=== PATIENT | female | born 1960 | race Caucasian/White ===

== ENCOUNTER 2024-09-30 01:10 | Day surgery (SDC) | payer SELFPAY ==
[2024-09-26 12:09] VITALS: BMI 26.4
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
--- OUTSIDE RECORDS SUMMARY | 2024-09-30 01:12 | XMS_ITS | Clinical Summary ---
Author Organization [facility] Address [address] 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 This disclosure is being madepursuant to the Care Everywhere program and may not contain all information available regarding this patient. Last updated 18.[facility] Medications * Be aware that medications may not be up to date on this document. Alwaysverify current medications with the patient. naproxen (NAPROSYN) 250 MG tablet Take 500 mg by mouth 2 times daily with morning and evening meal. 60 tablet 0 04/27/2017 Active amLODIPine (NORVASC) 5 MG tablet Take 5 mg by mouth DAILY. 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 Gender Identity Not on file Sexual Orientation Not on file Last Filed Vital Signs Vital Sign Reading Time Taken Comments Blood Pressure 170/100 04/27/2017 6:00 PM STRIP MILL OPERATOR Pulse 106 04/27/2017 5:00 PM STRIP MILL OPERATOR Temperature 36.4 C (97.6 F) 04/26/2017 2:35 AM STRIP MILL OPERATOR Respiratory Rate 20 04/27/2017 6:30 PM STRIP MILL OPERATOR Oxygen Saturation 99% 04/27/2017 5:00 PM STRIP MILL OPERATOR Inhaled Oxygen Concentration - - Weight 83 kg (183 lb) 04/26/2017 9:06 AM STRIP MILL OPERATOR Height 165.1 cm (5' 5 ) 04/26/2017 9:06 AM STRIP MILL OPERATOR Body Mass Index 30.45 04/26/2017 9:06 AM STRIP MILL OPERATOR Plan of Treatment Health Maintenance Due Date Last Done Comments COLOGUARD (AGES 45-75) - COL ON CA SCREENING 1960 COLON MONITORING 1960 COLONOSCOPY - COLON CA SCREENING 1960 CT COLONOGRAPHY - COLON CA SCREENING 1960 Colorectal Cancer Screening 1960 FIT - COLON CA SCREENING 1960 FLEX SIG - COLON CA SCREENING 1960 LIPID TESTING 1960 MAMMOGRAM 1960 HIV SCREENING 08/23/1975 HEPATITIS C SCREENING 08/18/1978 DTAP/TDAP/TD VACCINES (1 - Tdap) 08/23/1979 PNEUMOCOCCAL VACCINE 50+ (1 of 1 - PCV) 2010 ZOSTER VACCINE (1 of 2) 2010 COVID-19 VACCINE (1 - 2023-2 5 season) 2024 DEPRESSION SCREENING 05/28/2024 INFLUENZA VACCINE (Season Ended) 2025 Respiratory Syncytial Virus (RSV) Vaccine Pt: or over 60 yrs (1 - 1-dose 75+ series) 08/23/2035 HEPATITIS B VACCINE Aged Out No longe r eligible based on patient's age to complete this topic HIB VACCINE Aged Out No longer eligi ble based on patient's age to complete this topic HPV VACCINE Aged Out No longer eligi ble based on patient's age to complete this topic MENINGOCOCCAL (Group B) VACC INE SHARED DECISION-MAKING Aged Out No longer eligibl e based on patient's age to complete this topic MENINGOCOCCAL GROUPS A/C/Y/W VACCINE Aged Out No longer eligible b ased on patient's age to complete this topic
--- OUTSIDE RECORDS SUMMARY | 2024-09-30 01:13 | XMS_ITS | Data Portability ---
Author Organization [facility] Address [address] [place] [address] Care Team Providers Care Wraparound Facilitator Name Role Phone ZOEY HAINES Primary Care Provider Unavailabl e Assessment No assessment recorded. Plan of Treatment Reminders Order Date Submit Date Provider Last Modified By Organization Details Last Modified Time Details Appointments None recorded. Lab BMP, serum or plasma 2024 025 [facility], [address] [place] [address], [address], [place], [address], 5 10:15:51 albumin/cre atinine, mass ratio, urine 2024 025 [facility], [address] [facility], [address], [place], [address], 5 10:15:50 Referral None recorded. Procedures None recorded. Surgeries None recorded. Imaging None recorded. Medication Orders amlodipine 10 mg tablet 2024 025 [facility], [address] [place], [address], 5 15:44:18 benazepril 20 mg tablet 2024 025 [facility], [address] [place], [address], 5 15:44:19 amlodipine 10 mg tablet 2023 024 [facility], [address] [place], [address], 4 14:45:32 benazepril 20 mg tablet 2023 024 [facility], [address] [place] [address], [address], 4 14:45:32 amlodipine 10 mg tablet 2023 024 [facility], [address] [place] [address], [address], 4 16:01:51 benazepril 20 mg tablet 2023 024 [facility], [address] [place] [address], [address], 4 16:01:50 benazepril 20 mg tablet 2022 023 [facility], [address] [place] [address], [address], 3 14:31:53 amlodipine 10 mg tablet 2022 023 [facility], [address] [place] [address], [address], 3 14:31:51 hydrochloro thiazide 12.5 mg capsule [email or web address], [address] [place] [address], [address], 3 14:31:03 Patient TargetsNo targets recorded. Patient Instructions Encounter Date Encounter Id Patient Instructions Last Modified By Organization Details Last Modified Time 01/23/2023 [id number] agree w plan and treatment and was present Dr. Ambrocio bhakta Not available 01/23/2023 16:49:27 09/04/2023 [id number] agree w plan and treatment and was present Dr. Ambrocio bhakta Not available 09/04/2023 16:42:02 01/10/2024 [id number] I was present an d available in the Family Medicine clinic to discuss the patient's care during the time of the appointment. All labs/imaging/cons ults/prescription s to be followed by the resident rendering services on day of encounter. I agree with the resident's assessment and plan as documented with the following addendum: None. Berto Bhatt [email or web address] Not available 01/11/2024 14:47:32 07/10/2024 [id number] I was present an d available to see this patient in [facility] clinic. I agree with the written findings. Lena Leach MD [email or web address] Not available 07/15/2024 14:33:25 Reason for Referral None Reported. Results Created Date Observation Date Name Description Value Unit Range Abnormal Flag Note LastModifiedBy Organization Detail LastModifiedTime 12/29/1912/28/2022 LIPID PANEL cholesterol, total 223 mg/dL 100-19 9 above high normal Not Available [facility] ([place]) [address] [place], [address], 12/29/2022 01:08:08 12/29/1912/28/2022 LIPID PANEL triglyceride s 81 mg/dL 0-149 Not Available [facility] ([place]) [address] [place], [address], 12/29/2022 01:08:08 12/29/1912/28/2022 LIPID PANEL HDL cholesterol 69 mg/dL 40-999 Not Available [facility] ([place] [address] [place], [address], 12/29/2022 01:08:08 12/29/1912/28/2022 LIPID PANEL VLDL cholesterol althea 16 mg/dL 5-40 Not Available [facility] ([place]) [address] [place], [address], 12/29/2022 01:08:08 12/29/19 23 12/28/2022 LIPID PANEL LDL chol calc ([facility]) 150 mg/dL 0-99 above high normal Not Available [facility] ([place]) [address] [place], [address], 12/29/2022 01:08:08 12/29/19 23 12/28/2022 BASIC METAB OLIC PANEL (8) glucose 87 mg/dL 70-99 Not Available [facility] ([place]) [address] [place], [address], 12/29/2022 01:08:08 12/29/19 23 12/28/2022 BASIC METAB OLIC PANEL (8) BUN 9 mg/dL 8-27 Not Available [facility] ([place]) [address] [place], [address], 12/29/2022 01:08:08 12/29/19 23 12/28/2022 BASIC METAB OLIC PANEL (8) creatinine 0.81 mg/dL 0.76-1 .27 Not Available [facility] ([place]) [address] [place], [address], 12/29/2022 01:08:08 12/29/19 23 12/28/2022 BASIC METAB OLIC PANEL (8) eGFR 82 >=60 Units for eGFR value s are mL/mi n/1.7 3 The eGFR Calcu latio n has not been valid ated for patie nts under the age of 18. If test resul ts are displ ayed for a patie nt under the age of 18, disre corby that value . Not Available [facility] ([place]) [address] [place], [address], 12/29/2022 01:08:08 12/29/19 23 12/28/2022 BASIC METAB OLIC PANEL (8) BUN/creatini ne ratio 11 10-28 Not Available [facility] ([place]) [address] [place], [address], 12/29/2022 01:08:08 12/29/19 23 12/28/2022 BASIC METAB OLIC PANEL (8) sodium 140 mmol/ L 134-14 4 Not Available [facility] ([place]) [address] [place], [address], 12/29/2022 01:08:08 12/29/19 23 12/28/2022 BASIC METAB OLIC PANEL (8) potassium 4.2 mmol/ L 3.5-5. 2 Not Available [facility] ([place]) [address] [place], [address], 12/29/2022 01:08:08 12/29/19 23 12/28/2022 BASIC METAB OLIC PANEL (8) chloride 103 mmol/ L 96-106 Not Available [facility] ([place]) [address] [place], [address], 12/29/2022 01:08:08 12/29/19 23 12/28/2022 BASIC METAB OLIC PANEL (8) carbon dioxide, total 25 mmol/ L 20-29 Not Available [facility] ([place]) [address] [place], [address], 12/29/2022 01:08:08 12/29/19 23 12/28/2022 BASIC METAB OLIC PANEL (8) calcium 9.4 mg/dL 8.7-10 .3 Not Available [facility] ([place]) [address] [place], [address], 12/29/2022 01:08:08 12/29/19 23 12/29/2022 ALBUM IN/CR EATIN INE RATIO ,URIN E creatinine, urine 64.8 mg/dL notest ab. Not Available [facility] ([facility]) [address] [place], [address], 12/29/2022 09:23:00 12/29/19 23 12/29/2022 ALBUM IN/CR EATIN INE RATIO ,URIN E albumin, urine 6.4 ug/mL notest ab. Not Available [facility] ([facility]) [address] [facility], [place], [address], 12/29/2022 09:23:00 12/29/19 23 12/29/2022 ALBUM IN/CR EATIN INE RATIO ,URIN E alb/creat ratio 10 mg/g_ creat 0-29 Emilai l: 0 - 29 Moder ately incre ased: 30 - 300 Sever drea incre ased: >300 Not Available [facility] ([facility]) [address] [facility], [place], [address], 12/29/2022 09:23:00 12/29/19 23 12/29/2022 CARDI OVASC ULAR REPOR T interpretati on Note Suppl ement al repor t is avail able. Not Available [facility] ([place]) [address] [facility], [place], [address], 12/29/2022 01:08:09 12/29/19 23 12/29/2022 CARDI OVASC ULAR REPOR T pdf . Not Available [facility] ([place]) [address] [facility], [place], [address], 12/29/2022 01:08:09 07/10/19 25 07/11/2024 ALBUM IN/CR EATIN INE RATIO ,URIN E creatinine, urine 19.0 mg/dL notest ab. Not Available [facility] ([facility]) [address] [place], [address], 07/11/2024 10:15:50 07/10/19 25 07/11/2024 ALBUM IN/CR EATIN INE RATIO ,URIN E albumin, urine <3.0 ug/mL notest ab. Not Available [facility] ([facility]) [address] [place], [address], 07/11/2024 10:15:50 07/10/19 25 07/11/2024 ALBUM IN/CR EATIN INE RATIO ,URIN E alb/creat ratio <16 Emilia l: 0 - 29 Moder ately incre ased: 30 - 300 Sever drea incre ased: >300 Not Available [facility] ([facility]) [address] [place], [address], 07/11/2024 10:15:50 07/10/19 25 07/11/2024 BASIC METAB OLIC PANEL (8) glucose 98 mg/dL 70-99 Not Available [facility] ([facility]) [address] [place], [address], 07/11/2024 10:15:51 07/10/19 25 07/11/2024 BASIC METAB OLIC PANEL (8) BUN 10 mg/dL 8-27 Not Available [facility] ([facility]) [address] [place], [address], 07/11/2024 10:15:51 07/10/19 25 07/11/2024 BASIC METAB OLIC PANEL (8) creatinine 0.73 mg/dL 0.57-1 .00 Not Available [facility] ([facility]) [address] [place], [address], 07/11/2024 10:15:51 07/10/19 25 07/11/2024 BASIC METAB OLIC PANEL (8) eGFR 92 mL/mi n/1.7 3 >59 Not Available [facility] ([facility]) [address] [place], [address], 07/11/2024 10:15:51 07/10/19 25 07/11/2024 BASIC METAB OLIC PANEL (8) BUN/creatini ne ratio 14 12-28 Not Available [facility] ([facility]) [address] [place], [address], 07/11/2024 10:15:51 07/10/19 25 07/11/2024 BASIC METAB OLIC PANEL (8) sodium 142 mmol/ L 134-14 4 Not Available [facility] ([facility]) [address] [place], [address], 07/11/2024 10:15:51 07/10/19 25 07/11/2024 BASIC METAB OLIC PANEL (8) potassium 4.8 mmol/ L 3.5-5. 2 Not Available [facility] ([facility]) [address] [place], [address], 07/11/2024 10:15:51 07/10/19 25 07/11/2024 BASIC METAB OLIC PANEL (8) chloride 104 mmol/ L 96-106 Not Available [facility] ([facility]) [address] [facility], [place], [address], 07/11/2024 10:15:51 07/10/19 25 07/11/2024 BASIC METAB OLIC PANEL (8) carbon dioxide, total 25 mmol/ L 20-29 Not Available [facility] ([facility]) [address] [facility], [place], [address], 07/11/2024 10:15:51 07/10/19 25 07/11/2024 BASIC METAB OLIC PANEL (8) calcium 9.5 mg/dL 8.7-10 .3 Not Available [facility] ([facility]) [address] [facility], [place], [address], 07/11/2024 10:15:51 Result Notes None recorded. Problems Name Problem SNOMED Code Status Onset Date Resolution Date Notes Provider Name and Address Organization Details Recorded Time Hyperlipidemi a 31875011 Active 2019 Flakito Ramos [facility], [facility] 0 14:24:21 Screening mammography Active 2022 Cecilia Ortega MD Attn: Accounting ,[address] [facility], [place], [address] , [facility] 3 15:02:37 Screening for malignant neoplasm of cervix Active 2022 Cecilia Ortega MD Attn: Accounting ,[address] [facility], [place], [address] , [facility] 3 15:02:39 Essential hypertension 42485669 Active 2024 Chilo Leonard MD Attn: Accounting ,[address] [facility], [place], [address] , [facility] 5 11:50:56 Lacunar infarction 408354660 Active 2018 Chilo Leonard MD Attn: Accounting ,[address], [place], [address] , [facility] 5 15:40:27 Hypertensive disorder 92263857 Active Gianluca Argueta null, [place] - [facility] 5 10:46:38 Problem Notes None recorded. Medical Equipment None Reported. Allergies Allergen ID Allergen Name Allergen Category Reaction Reaction Severity Criticality Documentation Date Start Date Code Code System Note Provider Name and Address Organization Details Recorded Time 10211027 nitroglyc [facility] n Not available Not available Not available 04/30/2017 4917 RxNorm Yadi Ramos [place] null, [place] - [facility] 7 17:06:36 Medications Name Sig Start Date Stop Date Status Note LastModified by Organization Details LastModified Time benazepril hcl/hydrochl orothiazide2 0-25 mg tabs 11/20 completed Not Available Not Available Not Available hydrochlorot tab 25mghydrochl orothiazide active Not Available Not Available Not Available amlodipine tab 10mgamlodipi ne besylate active Not Available Not Available Not Available benazep/hctz tab 20-25mgbenaz epril hcl/hydrochl orothiazide active Not Available Not Available Not Available benazepril 20 mg-hydrochlo rothiazide 25 mg tablet TAKE 1 TABLET BY MOUTH EVERY DAY 11/20 completed Not Available Not Available Not Available naproxen 250 mg tablet 12/11 completed Not Available Not Available Not Available amlodipine 10 mg tablet TAKE 1 TABLET BY MOUTH ONCE DAILY 2024 active Not Available Not Available Not Avai lable hydrochlorot hiazide 12.5 mg capsule TAKE 1 CAPSULE BY MOUTH ONCE DAILY 04/26 completed Not Available Not Available Not Available benazepril 20 mg tablet Take 1 tablet twice a day by oral route for 180 days. 2024 active Not Available Not Available Not Avai lable furosemide 20 mg tablet TAKE 1/2 (ONE-TRENA F) TABLET BY MOUTH ONCE DAILY IN THE MORNING 07/10 completed Not Available Not Available Not Available benazepril 40 mg tablet Take 1 tablet every day by oral route. 12/11 completed Not Available Not Available Not Available Vitals Date Recorded Body height Body mass index (BMI) Body weight Body temperature Heart rate Oxygen saturation Oxygen saturation in Arterial blood by Pulse oximetry Systolic blood pressure Diastolic blood pressure Provider Name and Address Organization Details Last Updated DateTime 3 167.01 cm 25.1 kg/m2 51858.9 2 g 98.5 [degF] 76 /min 98 % 98 % 166 mm[Hg] 110 mm[Hg] Becky Gibson MA [facility] 3 16:08:28 Date Recorded Systolic blood pressure Diastolic blood pressure Provider Name and Address Organization Details Last Updated DateTime 01/23/2023 157 mm[Hg] 103 mm[Hg] Karen Nunez MD Attn: Accounting,[address] [place], [address], [facility] 01/23/2023 17:07:35 Date Recorded Body height Body mass index (BMI) Body weight Oxygen saturation Oxygen saturation in Arterial blood by Pulse oximetry Body temperature Heart rate Systolic blood pressure Diastolic blood pressure Provider Name and Address Organization Details Last Updated DateTime 3 167.01 cm 24.3 kg/m2 58240.9 6 g 98 % 98 % 98.5 [degF] 69 /min 120 mm[Hg] 80 mm[Hg] Brenda Ramsay MA [facility] 3 14:13:18 Date Recorded Body height Body temperature Body mass index (BMI) Body weight Oxygen saturation Oxygen saturation in Arterial blood by Pulse oximetry Heart rate Systolic blood pressure Diastolic blood pressure Provider Name and Address Organization Details Last Updated DateTime 4 167.01 cm 98.1 [degF] 24.4 kg/m2 81089.8 6 g 98 % 98 % 66 /min 138 mm[Hg] 85 mm[Hg] Annette Angeles MA [facility] 4 15:43:55 Date Recorded Body height Body mass index (BMI) Body weight Heart rate Oxygen saturation Oxygen saturation in Arterial blood by Pulse oximetry Body temperature Systolic blood pressure Diastolic blood pressure Provider Name and Address Organization Details Last Updated DateTime 4 167.01 cm 22.1 kg/m2 62543.9 1 g 82 /min 99 % 99 % 98.2 [degF] 135 mm[Hg] 85 mm[Hg] Becky Gibson MA [facility] 4 14:36:19 Date Recorded Body height Body mass index (BMI) Body weight Heart rate Oxygen saturation Oxygen saturation in Arterial blood by Pulse oximetry Body temperature Systolic blood pressure Diastolic blood pressure Provider Name and Address Organization Details Last Updated DateTime 5 167.01 cm 22.7 kg/m2 99162.7 9 g 63 /min 99 % 99 % 98.3 [degF] 144 mm[Hg] 89 mm[Hg] Becky Gibson MA [facility] 5 15:28:24 Date Recorded Systolic blood pressure Diastolic blood pressure Provider Name and Address Organization Details Last Updated DateTime 07/10/2024 132 mm[Hg] 84 mm[Hg] Chilo Leonard MD Attn: Accounting,[address] [place], [address], [facility] 07/10/2024 19:54:38 Social History Question Answer Notes LastModified by Organizat ion Details LastModified Time Tobacco Smoking Status Never Smoker Nirali Frederick jacquelin, [facility] 09/22/2014 17:09:48 What Is Your Level Of Alcohol Consumption? Occasional [email or web address] Information not available 09/22/2014 What Was The Date Of Your Most Recent Tobacco Screening? 07/10/2024 [email or web address] Information not available 07/10/2024 Sex: Unknown Functional Status None recorded. Mental Status None recorded. Family History Nothing Reported. Medical History No medical history recorded. Gynecological HistoryNo gynecological history recorded. Obstetrics History GPAL:G 0 P 0 0 0 0 Past Encounters Encounter ID Performer Location Encounter Start Date Encounter Closed Date Diagnosis/Indication Diagnosis SNOMED-CT Code Diagnosis ICD10 Code Diagnosis Note [id number] MD [facility] ([facility]) [address] [place] [address] 09/22/2014 16:42:07 09/23/2014 09:40:59 Hypertensive disorder 91695896 hypertensi on uncontroll ed Stage II will start on Lisinopril /HCTZ offered her bmp now to see her renal function and she says that she will get it on next bp follow up visit in 3 wks. advised DASH diet and exercise when told to decrease sodium, she says so you are telling me to stay dehydrated to lower my bp advised weight loss advised to be very careful of what herbal meds she uses she states that she had side effects to norvas. [id number] MD [facility] ([facility]) [address] [place] [address] 05/18/2015 11:46:14 05/19/2015 09:45:30 Hypertensive disorder 40588784 I10 -Clinic BP at goal @ 130/84 (goal for age <140/90). -Current medication s: reported only on Benzapril 20-HTCZ 25mg QD -Reported taking medication s w/o any side effects. -Advised to decrease salt intake & to try exercising & diet modificati on -will get BMP to assess for electrolyt e or renal abnormalit ies -Advised to keep BP log for next clinic visit. RTC 3mo [id number] MD [facility] ([facility]) [address] [place] [address] 03/20/2016 13:55:14 03/21/2016 10:07:17 Hypertensive disorder 05654807 I10 Suspect limited compliance with med. Rec NV within 2 weeks, bring home cuff and check against office measure. Decrease ETOH. Also recommend reconsider multiple herbal supps taking; can be vasoactive and have interactio ns/effects not well studied. [id number] MD [facility]) [address] [place] [address] 11/20/2016 16:06:36 11/21/2016 14:06:26 Hypertensive disorder 01771958 I10 BP 140/104, 150/110 on recheck Patient does not want to take amlodipine anymore and does not want a diuretic Will d/c amlodipine and start benazepril 20 mg daily Follow up in 1 month [id number] MD [facility] ([facility]) [address] [place] [address] 12/14/2016 16:22:58 12/15/2016 15:12:38 Hypertensive disorder 29301854 I10 BP 152/104, 120/98 on recheck, goal <140/90 Patient does not want to take amlodipine anymore and does not want a diuretic Discontinu ed amlodipine previously Continue benazepril 20 mg daily Adult [facility] examination [id number] Z00.00 Patient refuses vaccinesPa tient refuses mammogram, Pap, and colonoscop y (never had colonoscop y)Last Pap normal about 3-4 years ago, normal, never had abnormalLa st mammogram 4 years ago, normal, never had abnormal [id number] [facility] [address] [place] [address] 04/30/2017 16:59:55 05/08/2017 17:38:55 Hypertensive disorder 52121373 I10 56 YO F w/ HTN here for hospital follow up. Admitted for hypertensi ve urgency with concern for aneurysm (ruled out and sent home. -BP 144/110 -> recheck 150/100 -Denies any headaches, dizziness, blurry vision, chest pain, palpitatio ns. -On amlodipine 5 mg benazepril 20 mg. -has developed a dry cough. Will take off benazepril . -Will increase amlodipine to 10mg PO daily and start HCTZ 12.5. Adverse effects of medication prescribed is explained to patient. Pt expresses understand ing. All questions addressed. -Recommend checking BP daily and keeping a log. BMI of 47, discussed weight loss and exercise. Pt expresses understand ing. -Follow up in 4wks with PCP. Can switch to ARB if noncomplia nt with HCTZ. [id number] [facility] [address] [place] [address] 06/04/2017 12:05:15 06/07/2017 12:04:06 Hypertensive disorder 10503498 I10 BP 150/102, 146/108 on recheck, goal <140/90 Currently on amlodipine 10 mg daily Urged patient to restart benazepril 20 mg daily She does not want to take diuretics as she feels they dehydrate her too much Patient hesitant to get lab work done, will revisit at next visit in 2 weeks Adult [facility] examination [id number] Z00.00 Patient refuses vaccinesPa tient refuses mammogram, Pap, and colonoscop y (never had colonoscop y)Patient was counseled on the risks of refusing preventati ve health care and chooses to accept risksLast Pap normal about 3-4 years ago, normal, never had abnormalLa st mammogram 4 years ago, normal, never had abnormal [id number] MD Meghan Harris 3 [facility] [address] [place] [address] 09/17/2017 16:33:20 09/18/2017 16:51:44 Hypertensive disorder 20449790 I10 BP 144/98, 130/98 on recheck, goal <140/90 Currently on amlodipine 10 mg daily and benazepril 20 mg daily, will increase benazepril to 40 mg daily, counseled her on reporting to the ER right away if she notices any mouth swelling She does not want to take diuretics as she feels they dehydrate her too much Patient hesitant to get lab work done, revisit at next visit in 1 month Adult [facility] examination [id number] Z00.00 Patient refuses vaccinesPa tient refuses mammogram, Pap, and colonoscop y (never had colonoscop y), discuss FIT testing at next visitPatie nt was counseled on the risks of refusing preventati ve health care and chooses to accept risksLast Pap normal about 3-4 years ago, normal, never had abnormalLa st mammogram 4 years ago, normal, never had abnormal [id number] MD Meghan Sherman 3 [facility] [address] [place] [address] 02/14/2018 16:16:53 02/19/2018 09:50:35 Hypertensive disorder 42075729 I10 above goal, did not take benazepril at all todaydenie s htn emergency symptoms- rechecking bmp- refill meds but change benazepril to 20 mg BID for patient preferred dosing schedule- refuses lipid check/eva tment, refused flu vaccine [id number] MD Meghan Sherman 3 [facility] [address] [place] [address] 09/03/2018 15:59:24 09/05/2018 09:30:39 Hypertensive disorder 99353331 I10 at goal today- patient plans on d/c a home BP med, unclear which at this time- given this, starting hctz not contraindi cated- patient aware of signs/sx hypotensio n and to be seen for these- checking BMP after starting [id number] Arnold Monahan MD [facility] [address] [address] 12/11/2018 11:54:18 12/12/2018 10:22:51 Hypertensive disorder 35859259 I10 endorses goal BPs at home; slightly elevated diastolic today; stable on hypertensi ve medication s- continue benazepril and amlodipine at current dosing; 6 mo supply per patient request and self-pay status- continue BP monitoring at home daily- patient aware of signs/sx hypotensio n and to be seen for these - patient prefers f/u no sooner than 3 months due to self pay Rib pain [id number] R07.8 1 trauma to left lower rib a few weeks ago. no difficulty breathing. most likely musculoske latal vs costochond ritis- educated patient can take 4-6 weeks to fully resolve- ibuprofen or tylenol OTC, which she refused- patient agreeable to expectatio n management [id number] Lena Leach MD [facility] [address] [address] 02/13/2019 14:00:24 02/14/2019 10:28:28 Hypertensive disorder 50142381 I10 endorses goal BPs at home; slightly elevated diastolic today; stable on hypertensi ve medication s- continue benazepril and amlodipine at current dosing; 90 day supply per patient request and self-pay status- continue BP monitoring at home daily- patient aware of signs/sx hypotensio n and to be seen for these - dietary counseling : refrain from cleansings , lower portions of carbohydra carmelina, incorporat e more fruits and vegetables - SMART exercise counseling : schedule walking with 20 min/3-5x per week to get heart rate up to 120-130s; use or other friend for accountabi lity - abnormal lipid panel in 2016; recheck lipid panel prior to next visit; tool to encourage lifestyle changes and consider other lipid reducing medication - follow-up in 6 months [id number] Jeison Campoverde MD [facility] [address] [address] 06/23/2019 17:03:15 06/24/2019 09:34:45 Hypertensive disorder 93154524 I10 Repeat BP at goal <140/90; stable on hypertensi ve medication s. Elevated BPs at home likely due to increased life stressors/ acute illness. Patient is not interested in adding any new medication s, which is reasonable .- continue benazepril and amlodipine at current dosing; 180 day supply per patient request and self-pay status- continue BP monitoring at home daily- patient aware of signs/sx hypotensio n and to be seen for these - dietary counseling : minimize salt additives, incorporat e more fruits and vegetables - SMART exercise counseling : schedule walking with 20 min/3-5x per week to get heart rate up to 120-130s; use or other friend for accountabi lity- counseled on weight loss - with history of stroke, recommende d aspirin and statins. patient refused. - abnormal lipid panel in 2016 and BMP in 2019; recheck lipid panel; patient has been refusing aspirin and statins. tool to encourage lifestyle changes and consider other lipid reducing medication - follow-up in 6 months [id number] [facility] [address] [address] 11/20/2019 12:03:57 11/21/2019 21:45:51 Hypertensive disorder [id number] I10 Repeat BP at goal <140/90; stable on hypertensi ve medication s by home BP monitoring . Unable to assess in office today due to phone visit during COVID-19 pandemic. BMP, UA 11/14 WNL. Stable on BP medication s. ASCVD 4.8%, low risk.- continue benazepril and amlodipine at current dosing; 180 day supply per patient request and self-pay status- continue BP monitoring at home daily- patient aware of signs/sx hypotensio n and to be seen for these - dietary counseling : minimize salt additives, incorporat e more fruits and vegetables - SMART exercise counseling : schedule walking with 20 min/3-5x per week to get heart rate up to 120-130s; use or other friend for accountabi lity- counseled on weight loss - with history of stroke, recommende d aspirin and statins. patient refuses. - follow-up in 6 months Screening mammography [id number] Z12.31 No baseline mammogram on file. Hx of breast cancer in family with sister. Negative BRCA by history. Asymptomat ic. - Counseled on screening mammogram and importance for catching early breast cancer. Patient acknowledg es, but declines. Screening for malignant neoplasm of colon [id number] Z12.11 No baseline colonoscop y or FIT performed. No hx of colon cancer in family. Asymptomat ic. - Counseled on screening colonoscop y and importance for catching early colon cancer. Patient acknowledg es, but declines further screening. Screening for malignant neoplasm of cervix [id number] Z12.4 No recent pap on file. No hx of cervical cancer in family. Asymptomat ic. - Counseled on screening colonoscop y and importance for catching early cervical cancer. Patient acknowledg es, but declines. Hyperlipidemia [id number] E78.5 Chronic, uncontroll ed. TC 212, HDL 58, LDL 128. Also hypertensi ve disorder. ASCVD 4.8%, but with history of stroke.- Discussed diet control. Patient prefers tumeric and other natural remedies to control her cholestero l. - with history of stroke, recommende d statin. patient refuses. [id number] Alanna Mistry MD [facility] [address] [facility] [address] [place] [address] 10/01/2020 12:43:25 10/04/2020 12:15:26 Hypertensive disorder 93562042 I10 Chronic, {{uncontro lled contr olled*}} with {{antihype rtensive medication with lifestyle management * lifestyl e management }}. BP at goal of {{<140/90 <150/90*}} by JNC-8 guidelines . Comorbidit ies include {{obesity obesity and dyslipidem ia dyslipi demia* obe sity, DM and dyslipidem ia DM and dyslipidem ia}}. Unable to assess BP in office, but patient ambulatory monitoring near daily at home in 120s/80s. - Counseled on weight loss; recommende d goal of 10% - Recommende d low sodium balanced diet - Counseled on moderate exercise 4-5 times per week for an average of 40 minutes per session - Counseled on limiting alcohol to {{1* 2}} drinks per day - Counseled on tobacco cessation {{not indicated* done}} - Continue on amlodipine , benazepril - Last BMP stable without significan t changes to Cr or electrolyt e balance. Repeat {{today* 3 months 6 months 12 months}} - Monitor home BP; counseled on logging daily, similar time, after 20 min rest; BP cuff {{ordered on-hand*}} - Follow-up in {{1-2 weeks 3 months 6 months 12 months*}} Screening for malignant neoplasm of cervix declined [id number] Z53.20 Breast can cer screening declined [id number] Z53.20 Colon canc er screening declined [id number] 9109 Z53.20 [id number] Berto Bhatt MD [facility] [address] [facility] [address] [place] [address] 05/30/2021 13:53:17 05/31/2021 13:24:31 Hypertensive disorder 72720274 I10 Chronic, {{uncontro lled contr olled*}} with {{antihype rtensive medication with lifestyle management * lifestyl e management }}. BP at goal of {{<140/90 <150/90*}} by JNC-8 guidelines . Comorbidit ies include {{obesity obesity and dyslipidem ia dyslipi demia* obe sity, DM and dyslipidem ia DM and dyslipidem ia}}. - Counseled on weight loss; recommende d goal of 10% - Recommende d low sodium balanced diet - Counseled on moderate exercise 4-5 times per week for an average of 40 minutes per session - Counseled on limiting alcohol to {{1* 2}} drinks per day - Counseled on tobacco cessation {{not indicated* done}} - Continue on amlodipine , benazepril - Last BMP stable without significan t changes to Cr or electrolyt e balance. Repeat {{today* 3 months 6 months 12 months}} - Monitor home BP; counseled on logging daily, similar time, after 20 min rest; BP cuff {{ordered on-hand*}} - Follow-up in {{1-2 weeks 3 months 6 months 12 months*}} History of cerebrovascular accident [id number] Z86.73 Reported history of lacunar stroke o/a 05/2018. Baseline left-sided arm and leg weakness, well compensate d. Will need hypertensi ve control, ASA and high-inten sity statin therapy for secondary prevention .- Strongly educated and advised ASA and high-inten sity statin therapy; patient declined- ED precaution s for stroke symptoms- HEP with considerat ion for future PT Dyslipidemia [id number] E 78.5 Patient w/ hx of dyslipidem ia, CVA. Lipid panel 2019 with elevated TC/LDLs.- Strongly educated and advised high-inten sity statin therapy; patient declined- Encouraged high-fiber diet, low sugary/sta rch carb diet Swelling o f bilateral lower limbs [id number] M79.89 Not present today on exam and without dyspnea. Likely intermitte nt 2/2 to amlodipine therapy, possible venous insufficie ncy.- Discussed exercise, leg raising, compressio n stockings Weakness of left leg [id number] G83.12 2/2 CVA, residual baseline deficit. Recommende d formal PT. Patient declined and opted for home exercises. Weakness of left arm [id number] G83.22 2/2 CVA, residual baseline deficit. Recommende d formal PT. Patient declined and opted for home exercises. Colon canc er screening declined [id number] 9109 Z53.20 Screening for malignant neoplasm of cervix declined [id number] Z53.20 Breast can cer screening declined [id number] Z53.20 [id number] ROXANNA ACOSTA MD [facility] [address] [facility] [address] [place] [address] 10/31/2021 14:23:55 11/01/2021 10:07:44 Hypertensive disorder 88637535 I10 Chronic, {{uncontro lled contr olled*}} with {{antihype rtensive medication with lifestyle management * lifestyl e management }}. BP at goal of {{<140/90 <150/90*}} by JNC-8 guidelines . Comorbidit ies include {{obesity obesity and dyslipidem ia dyslipi demia* obe sity, DM and dyslipidem ia DM and dyslipidem ia}}. History of lacunar stroke, so important control for secondary prevention . - Counseled on weight loss; recommende d goal of 10% - Recommende d low sodium balanced diet - Counseled on moderate exercise 4-5 times per week for an average of 40 minutes per session - Counseled on limiting alcohol to {{1* 2}} drinks per day - Counseled on tobacco cessation {{not indicated* done}} - Continue on amlodipine , benazepril - Last BMP stable without significan t changes to Cr or electrolyt e balance. Repeat {{today 3 months 6 months* 12 months}} - Discussed not necessary to check BPs daily - Follow-up in {{1-2 weeks 3 months 6 months* 12 months}} [id number] Stacey Castillo-MD Meghan Santana [address] [address] 04/14/2022 14:27:13 04/17/2022 13:06:28 Hypertensive disorder 34883917 I10 BP 140/95 in office today. Patient reports white coat HTN.Home blood pressures in the 120-130s/8 0sReports compliance with Amlodipine 10mg, Benazapril 20mg- Per JNC-8 guidelines , goal BP <140/90- Recommend patient check blood pressures at home and continue current medication s- Check BMP, Urine alb/cr, A1c- Follow up 1-2 months- ER return precaution s provided Hyperlipidemia [id number] E78.01 Jun 2021 lipid panel with TC 214, LDL 132Not currently on a statin- Repeat lipid panel today- Would recommend starting a statin for ASCVD risk prevention with hx of HTN and hyperlipid emia [id number] MD Meghan Pradhan [address] [address] 09/28/2022 14:07:48 09/29/2022 11:02:36 Hypertensive disorder 77298065 I10 BP Goal: {{Less than 140/90* Le ss than 150/90}}BP Controlled : {{yes* no} }Healthy Weight: {{4'10= 91-118 lbs 4'11= 94-123 lbs 5'= 97-127 lbs 5'1= 100-131 lbs 5'2= 104-135 5' 3= 107-140 lbs 5'4= 110-144 lbs 5'5= 115-149 lbs 5'6= 118-154 lbs 5'7= 121-158 lbs* 5'8= 125-163 lbs 5'9= 128-168 lbs 5'10= 132-173 lbs 5'11= 136-178 lbs 6'= 140-183 lbs 6'1= 144-188 lbs 6'2= 148-193 lbs 6'3= 152-199 lbs 6'4= 156-204 lbs}}ASCVD Risk: 5.8% 2021 BMP WNL, urine alb/cr WNL Discussed: Low sodium balanced diet, moderate exercise at least 3-4 times per week for an average of 40 minutes, limiting alcohol to 1 drink per day (F) or 2 drinks per day (M), and smoking cessation if currently smoking.Ne xt Visit: {{1 2 3 4 5 6* 7 8 9 10 11 12} }{{week(s) month(s)* }}- Continue Amlodipine 10mg, Benazapril 20mg- Patient declines labs today d/t self pay Overweight [id number] E66 .3 BMI 27.7- Patient states her goal is to lose 10lbs over the next 3-4 months. She plans to cut back on carbs, similar to a keto diet Mammogram declined [id number] Z53.20 Patient reports last mammogram >5 yrs agoDenies personal/f amily hx of breast cancer- Discussed risks/bene fits of breast cancer screening, patient voiced understand ing. Declines mammogram today Colon [facility] [place] er screening declined [id number] 9109 Z53.20 Patient denies personal/f amily hx of colon cancer. Has never had a colonoscop y.Discusse d risks/bene fits of colon cancer screening, patient voice understand ing. Declines colonoscop y today. Screening for malignant neoplasm of cervix declined [id number] Z53.20 Patient reports last pap >15yrs ago, reports normalPati ent denies personal/f amily hx of cervical cancer, HPV- Discussed risks/bene fits of cervical cancer screening, patient voiced understand ing. Declines testing today [id number] [facility] [address] [facility] [address] [place] [address] 12/28/2022 14:50:04 01/01/2023 11:18:40 Hypertensive disorder 25968346 I10 BP Goal: {{Less than 140/90* Le ss than 150/90}}BP Controlled : {{yes no y es on repeat#}} - home blood pressures in 115-130/65 -85Healthy Weight: {{4'10= 91-118 lbs 4'11= 94-123 lbs 5'= 97-127 lbs 5'1= 100-131 lbs 5'2= 104-135 5' 3= 107-140 lbs 5'4= 110-144 lbs 5'5= 115-149 lbs 5'6= 118-154 lbs 5'7= 121-158 lbs* 5'8= 125-163 lbs 5'9= 128-168 lbs 5'10= 132-173 lbs 5'11= 136-178 lbs 6'= 140-183 lbs 6'1= 144-188 lbs 6'2= 148-193 lbs 6'3= 152-199 lbs 6'4= 156-204 lbs}}ASCVD Risk: 5.8% 2021 BMP WNL, urine alb/cr WNL Discussed: Low sodium balanced diet, moderate exercise at least 3-4 times per week for an average of 40 minutes, limiting alcohol to 1 drink per day (F) or 2 drinks per day (M), and smoking cessation if currently smoking.Ne xt Visit: {{1 2 3 4 5 6* 7 8 9 10 11 12} }{{week(s) month(s)* }}- Continue Amlodipine 10mg, Benazapril 20mg- Recheck BMP, urine alb/cr, lipid panel- Continue checking home blood pressures. Recommend bringing cuff to next visit [id number] [facility] [address] [facility] [address] [place] [address] 01/23/2023 15:20:23 02/01/2023 10:38:58 Hypertensive disorder 33986096 I10 BP Goal: {{Less than 140/90* Le ss than 150/90}}BP Controlled : {{yes no*} }Healthy Weight: {{4'10= 91-118 lbs 4'11= 94-123 lbs 5'= 97-127 lbs 5'1= 100-131 lbs 5'2= 104-135 5' 3= 107-140 lbs 5'4= 110-144 lbs 5'5= 115-149 lbs 5'6= 118-154 lbs 5'7= 121-158 lbs 5'8= 125-163 lbs* 5'9= 128-168 lbs 5'10= 132-173 lbs 5'11= 136-178 lbs 6'= 140-183 lbs 6'1= 144-188 lbs 6'2= 148-193 lbs 6'3= 152-199 lbs 6'4= 156-204 lbs}}Discu ssed: Low sodium balanced diet, moderate exercise at least 3-4 times per week for an average of 40 minutes, limiting alcohol to 1 drink per day and smoking cessation if currently smoking.Ne xt Visit: {{1* 2 3 4 5 6 7 8 9 10 11 12} }{{week(s) month(s)* }}- was previously stable on benazepril 20 bid and amlodipine 10- add HCTZ 12.5 and f/u 1 month [id number] CALLIE BLAKE MD [place] [address] [address] 04/26/2023 13:59:19 04/27/2023 09:27:56 Essential hypertension 41692890 I10 BP Goal: {{Less than 140/90* Le ss than 150/90}}BP Controlled : {{yes* no} }Healthy Weight: {{4'10= 91-118 lbs 4'11= 94-123 lbs 5'= 97-127 lbs 5'1= 100-131 lbs 5'2= 104-135 5' 3= 107-140 lbs 5'4= 110-144 lbs 5'5= 115-149 lbs* 5'6= 118-154 lbs 5'7= 121-158 lbs 5'8= 125-163 lbs 5'9= 128-168 lbs 5'10= 132-173 lbs 5'11= 136-178 lbs 6'= 140-183 lbs 6'1= 144-188 lbs 6'2= 148-193 lbs 6'3= 152-199 lbs 6'4= 156-204 lbs}}Discu ssed: Low sodium balanced diet, moderate exercise at least 3-4 times per week for an average of 40 minutes, limiting alcohol to 1 drink per day (F) or 2 drinks per day (M), and smoking cessation if currently smoking.Ne xt Visit: {{1 2 3* 4 5 6 7 8 9 10 11 12} }{{week(s) month(s)* }}- December BMP and urine alb/cr WNL. Repeat due December 2023- Continue amlodipine 10mg and benazapril 20mg BID- Can discontinu e HCTZ as patient is no longer taking it and BP remains within goal [id number] ROXANNA ACOSTA MD [facility] [address] [address] 09/04/2023 15:28:09 09/05/2023 12:56:43 Essential hypertension 68617393 I10 BP Goal: {{Less than 140/90* Le ss than 150/90}}BP Controlled : {{yes* no} }Healthy Weight: {{4'10= 91-118 lbs 4'11= 94-123 lbs 5'= 97-127 lbs 5'1= 100-131 lbs 5'2= 104-135 5' 3= 107-140 lbs 5'4= 110-144 lbs 5'5= 115-149 lbs* 5'6= 118-154 lbs 5'7= 121-158 lbs 5'8= 125-163 lbs 5'9= 128-168 lbs 5'10= 132-173 lbs 5'11= 136-178 lbs 6'= 140-183 lbs 6'1= 144-188 lbs 6'2= 148-193 lbs 6'3= 152-199 lbs 6'4= 156-204 lbs}}Discu ssed: Low sodium balanced diet, moderate exercise at least 3-4 times per week for an average of 40 minutes, limiting alcohol to 1 drink per day (F) or 2 drinks per day (M), and smoking cessation if currently smoking.Ne xt Visit: {{1 2 3 4 5 6* 7 8 9 10 11 12} }{{week(s) month(s)* }}- December BMP and urine alb/cr WNL. Repeat due December 2023- Continue amlodipine 10mg and benazapril 20mg BID Mammogram declined [id number] Z53.20 Patient reports last mammogram >5 yrs agoDenies personal/f amily hx of breast cancer- Discussed risks/bene fits of breast cancer screening, patient voiced understand ing. Declines mammogram today Screening for malignant neoplasm of colon [id number] Z12.11 Patient denies personal/f amily hx of colon cancer. Has never had a colonoscop y.Discusse d risks/bene fits/alter natives. Patient voice understand ing. Declines colonoscop y, fit/cologu jeffrey today. Cervical c ancer Papanicolaou smear screening declined [id number] 57481 Z53.20 Patient reports last pap >15yrs ago, reports normalPati ent denies personal/f amily hx of cervical cancer, HPV- Discussed risks/bene fits of cervical cancer screening, patient voiced understand ing. Declines testing today [id number] CALLIE BLAKE MD [facility] [address] [address] 01/10/2024 14:25:17 01/11/2024 19:05:45 Essential hypertension 79929139 I10 BP Goal: {{Less than 140/90* Le ss than 150/90}}BP Controlled : {{yes* no} }Healthy Weight: {{4'10= 91-118 lbs 4'11= 94-123 lbs 5'= 97-127 lbs 5'1= 100-131 lbs 5'2= 104-135 5' 3= 107-140 lbs 5'4= 110-144 lbs 5'5= 115-149 lbs* 5'6= 118-154 lbs 5'7= 121-158 lbs 5'8= 125-163 lbs 5'9= 128-168 lbs 5'10= 132-173 lbs 5'11= 136-178 lbs 6'= 140-183 lbs 6'1= 144-188 lbs 6'2= 148-193 lbs 6'3= 152-199 lbs 6'4= 156-204 lbs}}Discu ssed: Low sodium balanced diet, moderate exercise at least 3-4 times per week for an average of 40 minutes, limiting alcohol to 1 drink per day (F) or 2 drinks per day (M), and smoking cessation if currently smoking.Ne xt Visit: {{1 2 3 4 5 6* 7 8 9 10 11 12} }{{week(s) month(s)* }}- December BMP and urine alb/cr WNL. Repeat due at next visit- Continue amlodipine 10mg and benazapril 20mg BID Mammogram declined [id number] 5004 Z53.20 Patient reports last mammogram >5 yrs agoDenies personal/f amily hx of breast cancer- Discussed risks/bene fits of breast cancer screening, patient voiced understand ing. Declines mammogram today Screening for malignant neoplasm of colon [id number] Z12.11 Patient denies personal/f amily hx of colon cancer. Has never had a colonoscop y.Discusse d risks/bene fits/alter natives. Patient voice understand ing. Declines colonoscop y, fit/cologu jeffrey today. Cervical c ancer Papanicolaou smear screening declined [id number] 18247 Z53.20 Patient reports last pap >15yrs ago, reports normalPati ent denies personal/f amily hx of cervical cancer, HPV- Discussed risks/bene fits of cervical cancer screening, patient voiced understand ing. Declines testing today [id number] Stacey hu MD [facility] [address] [address] 07/10/2024 14:59:18 07/17/2024 11:15:49 Depression screening 107538105 Z13.31 PHQ 9 score 0negative for depression Essential hypertension 55017932 I10 BP Goal: {{Less than 140/90* Le ss than 150/90}}BP Controlled : {{yes* no} }Healthy Weight: {{4'10= 91-118 lbs 4'11= 94-123 lbs 5'= 97-127 lbs 5'1= 100-131 lbs 5'2= 104-135 5' 3= 107-140 lbs 5'4= 110-144 lbs 5'5= 115-149 lbs* 5'6= 118-154 lbs 5'7= 121-158 lbs 5'8= 125-163 lbs 5'9= 128-168 lbs 5'10= 132-173 lbs 5'11= 136-178 lbs 6'= 140-183 lbs 6'1= 144-188 lbs 6'2= 148-193 lbs 6'3= 152-199 lbs 6'4= 156-204 lbs}}Discu ssed: Low sodium balanced diet, moderate exercise at least 3-4 times per week for an average of 40 minutes, limiting alcohol to 1 drink per day (F) or 2 drinks per day (M), and smoking cessation if currently smoking.Ne xt Visit: {{1 2 3 4 5 6* 7 8 9 10 11 12} }{{week(s) month(s)* }}- Will obtain BMP, UACR labs today- Continue amlodipine 10mg and benazapril 20mg BID Mammogram declined 78457 500 Z53.20 Patient reports she is self pay - uninsured. [facility] resources with [facility] for coverage of mammogram. Pt reports she only has a year to wait and would rather do that Patient reports last mammogram >5 yrs agoDenies personal/f amily hx of breast cancer- Discussed risks/bene fits of breast cancer screening, patient voiced understand ing. Declines mammogram today Screening for malignant neoplasm of colon [id number] Z12.11 Patient reports she is self pay - uninsuredP atient denies personal/f amily hx of colon cancer. Has never had a colonoscop y.Discusse d risks/bene fits/alter natives. Patient voice understand ing. Declines colonoscop y, fit/cologu jeffrey today. Cervical c ancer Papanicolaou smear screening declined [id number] 80295 Z53.20 Patient reports she is self pay - uninsured Patient reports last pap >15yrs ago, reports normalPati ent denies personal/f amily hx of cervical cancer, HPV- Discussed risks/bene fits of cervical cancer screening, patient voiced understand ing. Declines testing today Pneumococc al vaccination declined [id number] Z28.21 Health Concerns Section Related Observation LastModified by Organization Detai ls LastModified Time None Recorded Concern Status LastModified by Organization Details LastModified Time None Recorded Advance Directives Directive None Recorded Payers Encounter Date Sequence Insurance Name Policy Number Policy Carlin Covered Member ID Carlin Member ID Guarantor Name 04/26/2023 1 *SELF PAY* Harvinder Antoine 09/04/2023 1 *SELF PAY* Harvinder lock Perharvinderk 01/10/2024 1 *SELF PAY* Harvinder lock Perharvinderk 07/10/2024 1 *SELF PAY* Harvinder Moodyk Notes Date Note Type Note Provider Name and Address Organization Details Recorded Time 3 text/html Pt presents for HTN f/u. States she is under significant stress given the loss of her mother and other psychosocial factors which she declined to elaborate on. Denies SI/HI with grief. Otherwise has no acute complaints. Pt denies CP/SOB, F/C, GARZA/dizziness, n/v/d/c, abdominal pain, dysuria, leg pain or swelling. Ivan Albrecht MD Attn: [address] [place], [address], [facility] 01/30/2023 16:46:11 3 text/html Heidy Antoine is a 62-year-old woman coming to the clinic for a blood pressure follow-up. The patient says she takes her benazepril 20 mg twice daily and amlodipine 10 mg once daily consistently and states she does not miss any doses. The patient says she stopped taking the hydrochlorothiazide and has not had any problems since stopping. The patient says she takes her bp measurements at home regularly and has not had any concerning readings. Home blood pressure readings in the 120/80s Denies fever, chest pain, sob. Ivan Albrecht MD Attn: [address] [place], [address], [facility] 04/26/2023 18:05:15 4 text/html 63yr old female presenting for med refills. No acute concernsReports compliance with BP medsChecks BP at home and brought log to visit. Readings are alll within goal.Declines all preventative screening today. Ivan Albrecht MD Attn: [address] [facility], [place], [address], [facility] 09/04/2023 20:34:43 4 text/html 63yr old female presenting for med refills. No acute concernsReports compliance with BP medsChecks BP at home and brought log to visit. Readings are all within goal.Declines all preventative screening today. Berto Bhatt MD Attn: [address] [facility], [place], [address], [facility] 01/11/2024 14:47:36 5 text/html Pt presents for blood pressure follow up.Has been monitoring blood pressure at home.Systolic range 135-116; diastolic range 74-86Pt denies CP/SOB, F/C, GARZA/dizziness, n/v/d/c, abdominal pain, dysuria, leg pain or swelling. Lena Leach MD Attn: [address] [facility], [place], [address], [facility] 07/15/2024 14:33:29 OBGyn Episode No OBEpisode recorded.
[2024-09-30 10:21] VITALS: BP 130/94; PULSE 99; RESP 16; TEMP 36.4; O2SAT 99
[2024-09-30] MEDS: LACTATED RINGERS 1,000 ML 150 ML IV CONT (10:31)
--- NOTE | 2024-09-30 11:01 | P.PNAN_ITS ---
Anes - Initial Pre Proc Eval Procedure: Operation Date: 09/30/24 11:30 Proposed Procedures p Colonoscopy - Myke Olvera MD Date/Time: 09/30/24 11:01 Surgeon: Myke Olvera MD Pre Op Diagnosis: Other fecal abnormalities Patient Data Age: 64 Gender: F Height: 1.55 m Weight: 61.3 kg Last Vital Signs Temp 97.6 F 09/30/24 10:21 Pulse 99 09/30/24 10:21 Resp 16 09/30/24 10:21 BP 130/94 H 09/30/24 10:21 Pulse Ox 99 09/30/24 10:21 O2 Del Method Room Air 09/30/24 10:21 Allergies Allergy/AdvReac Type Severity Reaction Status Date / Time nitroglycerin Allergy Unknown ALMOST Verified 09/30/24 10:20 PASSED OUT Home Medications ?Medication ?Instructions ?Recorded ?Confirmed ?Type amlodipine 10 mg tablet mg 09/26/24 History benazepril 20 mg tablet mg 09/26/24 History furosemide 20 mg tablet mg 09/26/24 History Patient hx anesthesia problems: none Family hx anesthesia problems: none Results Review: All pre-operative results and documents have been reviewed as part of the pre- operative evaluation. [facility] Social History Social History Smoking status: Never smoker Alcohol intake: never Substance use: never Substance use type: does not use Living arrangements: with family Spiritual care concerns: No Anes - Eval Final PreProcedure Day of Procedure 09/30/24 11:01 Patient weight: normal Heart: regular rate and rhythm Lungs: clear to auscultation Airway: Mallampati scale class II Neurological: alert and oriented Last oral intake: >/= 8 hours ASA classification: III Emergent: no Anesthetic plan: proceed Anesthesia type and monitoring: general GIVS and standard monitoring Results Review: All pre-operative results and documents have been reviewed as part of the pre- operative evaluation. Informed Consent: The patient's anesthetic plan and its attendant risks and benefits were discussed with the patient/family/POA. Questions were solicited and answers provided to the satisfaction of the patient/family/POA.
--- NOTE | 2024-09-30 11:18 | PM.HPGS ---
History of Present Illness History of Present Illness Consent: Risks, benefits, and alternatives have been discussed and questions answered. Patient agrees to proceed with procedure. Chief complaint: Other fecal abnormalities Narrative: Heidy Antoine is a 64 year old female here for first colonoscopy, had blood in stool Review of Systems Review of Systems: All systems reviewed & are unremarkable except as noted in HPI and below PMFSH Past Medical History Medical History (Updated 09/30/24 @ 11:19 by Myke Olvera MD) Blood in stool Social History Social History Smoking status: Never smoker Alcohol intake: never Substance use: never Substance use type: does not use Living arrangements: with family Spiritual care concerns: No Meds Home Medications and Allergies Home Medications ?Medication ?Instructions ?Recorded ?Confirmed ?Type amlodipine 10 mg tablet mg 09/26/24 History benazepril 20 mg tablet mg 09/26/24 History furosemide 20 mg tablet mg 09/26/24 History Allergies Allergy/AdvReac Type Severity Reaction Status Date / Time nitroglycerin Allergy Unknown ALMOST Verified 09/30/24 10:20 PASSED OUT Vital Signs Vital Signs - 24 hr 09/30/24 10:21 Temperature 97.6 F Pulse Rate 99 Respiratory Rate 16 Blood Pressure 130/94 H Pulse Oximetry 99 Oxygen Delivery Room Air Exam Const: General: comfortable and no acute distress HENMT: Face/Nose/Sinus: Normal nares present Eyes: General: appearance normal, both eyes and all related structures Neck: Neck: no JVD Resp: Auscultation: clear to auscultation bilaterally Cardio: Rate: regular rate Rhythm: regular rhythm GI: Inspection: non-distended GI Palp: Yes Soft to palpation Skin: General skin exam: normal color Neuro: Speech: normal speech Extrem: General: normal to inspection Psych: Mental Status: mental status grossly normal Assessment and Plan Assessment and plan (1) Blood in stool: Code(s): K92.1 - Melena Status: Acute Assessment and Plan: colonoscopy
[2024-09-30 11:44] VITALS: BP 89/56; PULSE 97; RESP 23; O2SAT 100
[2024-09-30 11:54] VITALS: BP 119/80; PULSE 77; RESP 17; O2SAT 98
[2024-09-30 12:04] VITALS: BP 143/86; PULSE 76; RESP 18; O2SAT 100
== END 2024-09-30 13:05 | disposition home or self-care (01) ==
PROVIDERS: Referring Provider Family Medicine; Visit Provider Internal Medicine Gastroenterology
PROC: 0DJD8ZZ Inspection of Lower Intestinal Tract, Via Natural or Artificial Opening Endoscopic (ICD-10-PCS; CPT 45378; principal; 2024-09-30 11:30)
DX: K92.1 Melena (principal); K57.30 Diverticulosis of large intestine without perforation or abscess without bleeding; D12.5 Benign neoplasm of sigmoid colon; K64.8 Other hemorrhoids
CPT/HCPCS: 45385; 45381; 88305; J2003; J2704; J7120

== ENCOUNTER 2024-11-11 22:59 | Emergency (ER) | payer OTHER, SELFPAY ==
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
--- OUTSIDE RECORDS SUMMARY | 2024-11-11 23:01 | XMS_ITS | Data Portability ---
[facility] Organization [facility] [address] [place] [address] Care Team Providers Care Grand Scribe Name Role Phone ZOEY HAINES Primary Care Provider Unavailabl e Assessment No assessment recorded. Plan of Treatment Reminders Order Date Submit Date Provider Last Modified By Organization Details Last Modified Time Details Appointments None recorded. Lab BMP, serum or plasma 2024 025 [facility], [address] [place] [address], [address], [place], [address], 5 10:15:51 albumin/cre atinine, mass ratio, urine 2024 025 [facility], [address] [facility], [address], [place], [address], 5 10:15:50 Referral None recorded. Procedures None recorded. Surgeries None recorded. Imaging None recorded. Medication Orders amlodipine 10 mg tablet 2024 025 [facility], [address] [place], [address], 5 15:44:18 benazepril 20 mg tablet 2024 025 [facility], [address] [place], [address], 5 15:44:19 amlodipine 10 mg tablet 2023 024 [facility], [address] [place], [address], 4 14:45:32 benazepril 20 mg tablet 2023 024 [facility], [address] [place] [address], [address], 4 14:45:32 amlodipine 10 mg tablet 2023 024 [facility], [address] [place] [address], [address], 4 16:01:51 benazepril 20 mg tablet 2023 024 [facility], [address] [place] [address], [address], 4 16:01:50 benazepril 20 mg tablet 2022 023 [facility], [address] [place] [address], [address], 3 14:31:53 amlodipine 10 mg tablet 2022 023 [facility], [address] [place] [address], [address], 3 14:31:51 hydrochloro thiazide 12.5 mg capsule [email or web address], [address] [place] [address], [address], 3 14:31:03 Patient TargetsNo targets recorded. Patient Instructions Encounter Date Encounter Id Patient Instructions Last Modified By Organization Details Last Modified Time 01/23/2023 [id number] agree w plan and treatment and was present Dr. Ambrocio bhakta Not available 01/23/2023 16:49:27 09/04/2023 [id number] agree w plan and treatment and was present Dr. Ambrocio bhakta Not available 09/04/2023 16:42:02 01/10/2024 [id number] I was present an d available in the Family Medicine clinic to discuss the patient's care during the time of the appointment. All labs/imaging/cons ults/prescription s to be followed by the resident rendering services on day of encounter. I agree with the resident's assessment and plan as documented with the following addendum: None. Berto Bhatt [email or web address] Not available 01/11/2024 14:47:32 07/10/2024 [id number] I was present an d available to see this patient in [facility] clinic. I agree with the written findings. Lena Leach MD [email or web address] Not available 07/15/2024 14:33:25 Reason for Referral None Reported. Results Created Date Observation Date Name Description Value Unit Range Abnormal Flag Note LastModifiedBy Organization Detail LastModifiedTime 12/29/1912/28/2022 LIPID PANEL cholesterol, total 223 mg/dL 100-19 9 above high normal Not Available [facility] ([place]) [address] [place], [address], 12/29/2022 01:08:08 12/29/1912/28/2022 LIPID PANEL triglyceride s 81 mg/dL 0-149 Not Available [facility] ([place]) [address] [place], [address], 12/29/2022 01:08:08 12/29/1912/28/2022 LIPID PANEL HDL cholesterol 69 mg/dL 40-999 Not Available [facility] ([place] [address] [place], [address], 12/29/2022 01:08:08 12/29/1912/28/2022 LIPID PANEL VLDL cholesterol althea 16 mg/dL 5-40 Not Available [facility] ([place]) [address] [place], [address], 12/29/2022 01:08:08 12/29/19 23 12/28/2022 LIPID PANEL LDL chol calc ([facility]) 150 mg/dL 0-99 above high normal Not Available [facility] ([place]) [address] [place], [address], 12/29/2022 01:08:08 12/29/19 23 12/28/2022 BASIC METAB OLIC PANEL (8) glucose 87 mg/dL 70-99 Not Available [facility] ([place]) [address] [place], [address], 12/29/2022 01:08:08 12/29/19 23 12/28/2022 BASIC METAB OLIC PANEL (8) BUN 9 mg/dL 8-27 Not Available [facility] ([place]) [address] [place], [address], 12/29/2022 01:08:08 12/29/19 23 12/28/2022 BASIC METAB OLIC PANEL (8) creatinine 0.81 mg/dL 0.76-1 .27 Not Available [facility] ([place]) [address] [place], [address], 12/29/2022 01:08:08 12/29/19 23 12/28/2022 BASIC METAB [...] corby that value . Not Available [facility] ([place]) [address] [place], [address], 12/29/2022 01:08:08 12/29/19 23 12/28/2022 BASIC METAB OLIC PANEL (8) BUN/creatini ne ratio 11 10-28 Not Available [facility] ([place]) [address] [place], [address], 12/29/2022 01:08:08 12/29/19 23 12/28/2022 BASIC METAB OLIC PANEL (8) sodium 140 mmol/ L 134-14 4 Not Available [facility] ([place]) [address] [place], [address], 12/29/2022 01:08:08 12/29/19 23 12/28/2022 BASIC METAB OLIC PANEL (8) potassium 4.2 mmol/ L 3.5-5. 2 Not Available [facility] ([place]) [address] [place], [address], 12/29/2022 01:08:08 12/29/19 23 12/28/2022 BASIC METAB OLIC PANEL (8) chloride 103 mmol/ L 96-106 Not Available [facility] ([place]) [address] [place], [address], 12/29/2022 01:08:08 12/29/19 23 12/28/2022 BASIC METAB OLIC PANEL (8) carbon dioxide, total 25 mmol/ L 20-29 Not Available [facility] ([place]) [address] [place], [address], 12/29/2022 01:08:08 12/29/19 23 12/28/2022 BASIC METAB OLIC PANEL (8) calcium 9.4 mg/dL 8.7-10 .3 Not Available [facility] ([place]) [address] [place], [address], 12/29/2022 01:08:08 12/29/19 23 12/29/2022 ALBUM IN/CR EATIN INE RATIO ,URIN E creatinine, urine 64.8 mg/dL notest ab. Not Available [facility] ([facility]) [address] [place], [address], 12/29/2022 09:23:00 12/29/19 23 12/29/2022 ALBUM IN/CR EATIN INE RATIO ,URIN E albumin, urine 6.4 ug/mL notest ab. Not Available [facility] ([facility]) [address] [facility], [place], [address], 12/29/2022 09:23:00 12/29/19 23 12/29/2022 ALBUM IN/CR EATIN INE RATIO ,URIN E alb/creat ratio 10 mg/g_ creat 0-29 Emilia l: 0 - 29 Moder ately incre ased: 30 - 300 Sever drea incre ased: >300 Not Available [facility] ([facility]) [address] [facility], [place], [address], 12/29/2022 09:23:00 12/29/19 23 12/29/2022 CARDI OVASC ULAR REPOR T interpretati on Note Suppl ement al repor t is avail able. Not Available [facility] ([place]) [address] [facility], [place], [address], 12/29/2022 01:08:09 12/29/19 23 12/29/2022 CARDI OVASC ULAR REPOR T pdf . Not Available [facility] ([place]) [address] [facility], [place], [address], 12/29/2022 01:08:09 07/10/19 25 07/11/2024 ALBUM IN/CR EATIN INE RATIO ,URIN E creatinine, urine 19.0 mg/dL notest ab. Not Available [facility] ([facility]) [address] [place], [address], 07/11/2024 10:15:50 07/10/19 25 07/11/2024 ALBUM IN/CR EATIN INE RATIO ,URIN E albumin, urine <3.0 ug/mL notest ab. Not Available [facility] ([facility]) [address] [place], [address], 07/11/2024 10:15:50 07/10/19 25 07/11/2024 ALBUM IN/CR EATIN INE RATIO ,URIN E alb/creat ratio <16 Emilia l: 0 - 29 Moder ately incre ased: 30 - 300 Sever drea incre ased: >300 Not Available [facility] ([facility]) [address] [place], [address], 07/11/2024 10:15:50 07/10/19 25 07/11/2024 BASIC METAB OLIC PANEL (8) glucose 98 mg/dL 70-99 Not Available [facility] ([facility]) [address] [place], [address], 07/11/2024 10:15:51 07/10/19 25 07/11/2024 BASIC METAB OLIC PANEL (8) BUN 10 mg/dL 8-27 Not Available [facility] ([facility]) [address] [place], [address], 07/11/2024 10:15:51 07/10/19 25 07/11/2024 BASIC METAB OLIC PANEL (8) creatinine 0.73 mg/dL 0.57-1 .00 Not Available [facility] ([facility]) [address] [place], [address], 07/11/2024 10:15:51 07/10/19 25 07/11/2024 BASIC METAB OLIC PANEL (8) eGFR 92 mL/mi n/1.7 3 >59 Not Available [facility] ([facility]) [address] [place], [address], 07/11/2024 10:15:51 07/10/19 25 07/11/2024 BASIC METAB OLIC PANEL (8) BUN/creatini ne ratio 14 12-28 Not Available [facility] ([facility]) [address] [place], [address], 07/11/2024 10:15:51 07/10/19 25 07/11/2024 BASIC METAB OLIC PANEL (8) sodium 142 mmol/ L 134-14 4 Not Available [facility] ([facility]) [address] [place], [address], 07/11/2024 10:15:51 07/10/19 25 07/11/2024 BASIC METAB OLIC PANEL (8) potassium 4.8 mmol/ L 3.5-5. 2 Not Available [facility] ([facility]) [address] [place], [address], 07/11/2024 10:15:51 07/10/19 25 07/11/2024 BASIC METAB OLIC PANEL (8) chloride 104 mmol/ L 96-106 Not Available [facility] ([facility]) [address] [facility], [place], [address], 07/11/2024 10:15:51 07/10/19 25 07/11/2024 BASIC METAB OLIC PANEL (8) carbon dioxide, total 25 mmol/ L 20-29 Not Available [facility] ([facility]) [address] [facility], [place], [address], 07/11/2024 10:15:51 07/10/19 25 07/11/2024 BASIC METAB OLIC PANEL (8) calcium 9.5 mg/dL 8.7-10 .3 Not Available [facility] ([facility]) [address] [facility], [place], [address], 07/11/2024 10:15:51 Result Notes None recorded. Problems Name Problem SNOMED Code Status Onset Date Resolution Date Notes Provider Name and Address Organization Details Recorded Time Hyperlipidemi a 13209416 Active 2019 Flakito Ramos [facility], [facility] 0 14:24:21 Screening mammography Active 2022 Cecilia Ortega MD Attn: Accounting ,[address] [facility], [place], [address] , [facility] 3 15:02:37 Screening for malignant neoplasm of cervix Active 2022 Cecilia Ortega MD Attn: Accounting ,[address] [facility], [place], [address] , [facility] [place] 3 15:02:39 Essential hypertension 20190754 Active 2024 Chilo Leonard MD Attn: Accounting ,[address] [facility], [place], [address] , [facility] 5 11:50:56 Lacunar infarction 546954591 Active 2018 Chilo Leonard MD Attn: Accounting ,[address], [place], [address] , [facility] [place] 5 15:40:27 Hypertensive disorder 09415251 Active Gianluca Argueta null, [place] 5 10:46:38 Problem Notes None recorded. Medical Equipment None Reported. Allergies Allergen ID Allergen Name Allergen Category Reaction Reaction Severity Criticality Documentation Date Start Date Code Code System Note Provider Name and Address Organization Details Recorded Time 10211027 nitroglyc [facility] n Not available Not available Not available 04/30/2017 4917 RxNorm Yadi Ramos MA null, [place] - [facility] 7 17:06:36 Medications Name Sig Start Date [...] Not Available Not Available Vitals Date Recorded Systolic blood pressure Diastolic blood pressure Provider Name and Address Organization Details Last Updated DateTime 07/10/2024 132 mm[Hg] 84 mm[Hg] Chilo Leonard MD Attn: Accounting,[address] [place], [address], [facility] 07/10/2024 19:54:38 Date Recorded Body height Body mass index (BMI) Body weight Heart rate Oxygen saturation Oxygen saturation in Arterial blood by Pulse oximetry Body temperature Systolic blood pressure Diastolic blood pressure Provider Name and Address Organization Details Last Updated DateTime 5 167.01 cm 22.7 kg/m2 88242.7 9 g 63 /min 99 % 99 % 98.3 [degF] 144 mm[Hg] 89 mm[Hg] Becky Gibson MA [facility] 5 15:28:24 Date Recorded Body height Body temperature Body mass index (BMI) Body weight Oxygen saturation Oxygen saturation in Arterial blood by Pulse oximetry Heart rate Systolic blood pressure Diastolic blood pressure Provider Name and Address Organization Details Last Updated DateTime 4 167.01 cm 98.1 [degF] 24.4 kg/m2 40417.8 6 g 98 % 98 % 66 /min 138 mm[Hg] 85 mm[Hg] Annette Angeles MA [facility] 4 15:43:55 Date Recorded Body height Body mass index (BMI) Body weight Heart rate Oxygen saturation Oxygen saturation in Arterial blood by Pulse oximetry Body temperature Systolic blood pressure Diastolic blood pressure Provider Name and Address Organization Details Last Updated DateTime 4 167.01 cm 22.1 kg/m2 39631.9 1 g 82 /min 99 % 99 % 98.2 [degF] 135 mm[Hg] 85 mm[Hg] Becky Gibson MA [facility] 4 14:36:19 Date Recorded Systolic blood pressure Diastolic blood pressure Provider Name and Address Organization Details Last Updated DateTime 01/23/2023 157 mm[Hg] 103 mm[Hg] Karen Nunez MD Attn: Accounting,[address] [facility], [place], [address], [facility] 01/23/2023 17:07:35 Date Recorded Body height Body mass index (BMI) Body weight Body temperature Heart rate Oxygen saturation Oxygen saturation in Arterial blood by Pulse oximetry Systolic blood pressure Diastolic blood pressure Provider Name and Address Organization Details Last Updated DateTime 3 167.01 cm 25.1 kg/m2 53285.9 2 g 98.5 [degF] 76 /min 98 % 98 % 166 mm[Hg] 110 mm[Hg] Becky Gibson MA [facility] 3 16:08:28 Date Recorded Body height Body mass index (BMI) Body weight Oxygen saturation Oxygen saturation in Arterial blood by Pulse oximetry Body temperature Heart rate Systolic blood pressure Diastolic blood pressure Provider Name and Address Organization Details Last Updated DateTime 3 167.01 cm 24.3 kg/m2 05586.9 6 g 98 % 98 % 98.5 [degF] 69 /min 120 mm[Hg] 80 mm[Hg] Brenda Ramsay MA [facility] 3 14:13:18 Social History Question Answer Notes LastModified by See[employer] Details LastModified Time Tobacco Smoking Status Never Smoker [facility] 09/22/2014 17:09:48 What Was The Date Of Your Most Recent Tobacco Screening? 07/10/2024 [email or web address] Information not available 07/10/2024 Sex: Unknown Functional Status Question Answer Note LastModified by See[employer] Details LastModified Time What is your level of alcohol consumption? Occasional [email or web address] Information not available 09/22/2014 Mental Status None recorded. Family History Nothing Reported. Medical History No medical history recorded. Gynecological HistoryNo gynecological history recorded. Obstetrics History GPAL:G 0 P 0 0 0 0 Past Encounters Encounter ID Performer Location Encounter Start Date Encounter Closed Date Diagnosis/Indication Diagnosis SNOMED-CT Code Diagnosis ICD10 Code Diagnosis Note [id number] MD [facility] [address] [place] [address] 09/22/2014 16:42:07 09/23/2014 09:40:59 Hypertensive disorder 97300471 hypertensi on uncontroll ed Stage II will [...] that she had side effects to norvas. [id number] MD [facility] ([facility]) [address] [place] [address] 05/18/2015 11:46:14 05/19/2015 09:45:30 Hypertensive disorder 91060128 I10 -Clinic BP at goal @ 130/84 [...] log for next clinic visit. RTC 3mo [id number] MD [facility] ([facility]) [address] [place] [address] 03/20/2016 13:55:14 03/21/2016 10:07:17 Hypertensive disorder 40770186 I10 Suspect limited compliance with med. Rec NV within 2 weeks, bring home cuff and check against office measure. Decrease ETOH. Also recommend reconsider multiple herbal supps taking; can be vasoactive and have interactio ns/effects not well studied. [id number] MD [facility]) [address] [place] [address] 11/20/2016 16:06:36 11/21/2016 14:06:26 Hypertensive disorder 24297024 I10 BP 140/104, 150/110 on recheck Patient does not want to take amlodipine anymore and does not want a diuretic Will d/c amlodipine and start benazepril 20 mg daily Follow up in 1 month [id number] MD [facility] ([facility]) [address] [place] [address] 12/14/2016 16:22:58 12/15/2016 15:12:38 Hypertensive disorder 01943420 I10 BP 152/104, 120/98 on recheck, goal <140/90 Patient does not want to take amlodipine anymore and does not want a diuretic Discontinu ed amlodipine previously Continue benazepril 20 mg daily Adult heal th examination 609598626 Z00.00 Patient refuses vaccinesPa tient refuses mammogram, Pap, and colonoscop y (never had colonoscop y)Last Pap normal about 3-4 years ago, normal, never had abnormalLa st mammogram 4 years ago, normal, never had abnormal [id number] MD Meghan Wheeler [address] [address] 04/30/2017 16:59:55 05/08/2017 17:38:55 Hypertensive disorder 14021967 I10 56 YO F w/ HTN here [...] to ARB if noncomplia nt with HCTZ. [id number] MD Meghan Mooney [address] [address] 06/04/2017 12:05:15 06/07/2017 12:04:06 Hypertensive disorder 32283976 I10 BP 150/102, 146/108 on recheck, goal <140/90 Currently on amlodipine 10 mg daily Urged patient to restart benazepril 20 mg daily She does not want to take diuretics as she feels they dehydrate her too much Patient hesitant to get lab work done, will revisit at next visit in 2 weeks Adult [facility] examination 033497894 Z00.00 Patient refuses vaccinesPa tient refuses mammogram, Pap, and colonoscop y (never had colonoscop y)Patient was counseled on the risks of refusing preventati ve health care and chooses to accept risksLast Pap normal about 3-4 years ago, normal, never had abnormalLa st mammogram 4 years ago, normal, never had abnormal [id number] MD Meghan Harris [address] [address] 09/17/2017 16:33:20 09/18/2017 16:51:44 Hypertensive disorder 00222132 I10 BP 144/98, 130/98 on recheck, goal [...] at next visit in 1 month Adult [facility] examination 266292731 Z00.00 Patient refuses vaccinesPa tient refuses mammogram, Pap, and colonoscop y (never had colonoscop y), discuss FIT testing at next visitPatie nt was counseled on the risks of refusing preventati ve health care and chooses to accept risksLast Pap normal about 3-4 years ago, normal, never had abnormalLa st mammogram 4 years ago, normal, never had abnormal [id number] MD Meghan Sherman [address] [address] 02/14/2018 16:16:53 02/19/2018 09:50:35 Hypertensive disorder 63395513 I10 above goal, did not take benazepril at all todaydenie s htn emergency symptoms- rechecking bmp- refill meds but change benazepril to 20 mg BID for patient preferred dosing schedule- refuses lipid check/eva tment, refused flu vaccine [id number] MD Meghan Sherman [address] [facility] [address] 09/03/2018 15:59:24 09/05/2018 09:30:39 Hypertensive disorder 02681529 I10 at goal today- patient plans on d/c a home BP med, unclear which at this time- given this, starting hctz not contraindi cated- patient aware of signs/sx hypotensio n and to be seen for these- checking BMP after starting [id number] Arnold Monahan MD [place] [address] [address] [address] 12/11/2018 11:54:18 12/12/2018 10:22:51 Hypertensive disorder 51815049 I10 endorses goal BPs at home; slightly [...] months due to self pay Rib pain 865537512 R07.8 1 trauma to left lower rib a few weeks ago. no difficulty breathing. most likely musculoske latal vs costochond ritis- educated patient can take 4-6 weeks to fully resolve- ibuprofen or tylenol OTC, which she refused- patient agreeable to expectatio n management [id number] Lena Leach MD [place] [address] [address] 02/13/2019 14:00:24 02/14/2019 10:28:28 Hypertensive disorder 25257957 I10 endorses goal BPs at home; slightly [...] reducing medication - follow-up in 6 months [id number] MD Meghan aCrrillo [address] [address] 06/23/2019 17:03:15 06/24/2019 09:34:45 Hypertensive disorder 15592233 I10 Repeat BP at goal <140/90; stable [...] reducing medication - follow-up in 6 months [id number] MD Meghan Carrillo [address] [address] 11/20/2019 12:03:57 11/21/2019 21:45:51 Hypertensive disorder 18766003 I10 Repeat BP at goal <140/90; stable [...] to 120-130s; use or other friend for tip lerma- counseled on weight loss - with history of stroke, recommende d aspirin and statins. patient refuses. - follow-up in 6 months Screening mammography 24 504108 Z12.31 No baseline mammogram on file. Hx of breast cancer in family with sister. Negative BRCA by history. Asymptomat ic. - Counseled on screening mammogram and importance for catching early breast cancer. Patient acknowledg es, but declines. Screening for malignant neoplasm of colon 568456801 Z12.11 No baseline colonoscop y or FIT performed. No hx of colon cancer in family. Asymptomat ic. - Counseled on screening colonoscop y and importance for catching early colon cancer. Patient acknowledg es, but declines further screening. Screening for malignant neoplasm of cervix 418861055 Z12.4 No recent pap on file. No hx of cervical cancer in family. Asymptomat ic. - Counseled on screening colonoscop y and importance for catching early cervical cancer. Patient acknowledg es, but declines. Hyperlipidemia 26624829 E78.5 Chronic, uncontroll ed. TC 212, HDL 58, LDL 128. Also hypertensi ve disorder. ASCVD 4.8%, but with history of stroke.- Discussed diet control. Patient prefers tumeric and other natural remedies to control her cholestero l. - with history of stroke, recommende d statin. patient refuses. [id number] Alanna Mistry MD [place] [address] [address] 10/01/2020 12:43:25 10/04/2020 12:15:26 Hypertensive disorder 80209042 I10 Chronic, controlled with antihypert ensive medication with lifestyle management . BP at goal of <150/90 by JNC-8 guidelines . Comorbidit ies include dyslipidem ia. Unable to assess BP in office, but patient ambulatory monitoring near daily at home in 120s/80s. - Counseled on weight loss; recommende d goal of 10% - Recommende d low sodium balanced diet - Counseled on moderate exercise 4-5 times per week for an average of 40 minutes per session - Counseled on limiting alcohol to 1 drinks per day - Counseled on tobacco cessation not indicated - Continue on amlodipine , benazepril - Last BMP stable without significan t changes to Cr or electrolyt e balance. Repeat today - Monitor home BP; counseled on logging daily, similar time, after 20 min rest; BP cuff on-hand - Follow-up in 12 months Screening for malignant neoplasm of cervix declined 279972695 Z53.20 Breast can cer screening declined [id number] 3308078 Z53.20 Colon canc er screening declined 1282440350 9109 Z53.20 [id number] Berto Bhatt MD [facility] [address] [facility] [address] [place] [address] 05/30/2021 13:53:17 05/31/2021 13:24:31 Hypertensive disorder 17015691 I10 Chronic, controlled with antihypert ensive medication with lifestyle management . BP at goal of <150/90 by JNC-8 guidelines . Comorbidit ies include dyslipidem ia. - Counseled on weight loss; recommende d goal of 10% - Recommende d low sodium balanced diet - Counseled on moderate exercise 4-5 times per week for an average of 40 minutes per session - Counseled on limiting alcohol to 1 drinks per day - Counseled on tobacco cessation not indicated - Continue on amlodipine , benazepril - Last BMP stable without significan t changes to Cr or electrolyt e balance. Repeat today - Monitor home BP; counseled on logging daily, similar time, after 20 min rest; BP cuff on-hand - Follow-up in 12 months History of cerebrovascular accident 784709824 Z86.73 Reported history of lacunar stroke o/a 05/2018. Baseline left-sided arm and leg weakness, well compensate d. Will need hypertensi ve control, ASA and high-inten sity statin therapy for secondary prevention .- Strongly educated and advised ASA and high-inten sity statin therapy; patient declined- ED precaution s for stroke symptoms- HEP with considerat ion for future PT Dyslipidemia 103747624 E 78.5 Patient w/ hx of dyslipidem ia, CVA. Lipid panel 2020 with elevated TC/LDLs.- Strongly educated and advised high-inten sity statin therapy; patient declined- Encouraged high-fiber diet, low sugary/sta rch carb diet Swelling o f bilateral lower limbs [id number] M79.89 Not present today on exam and without dyspnea. Likely intermitte nt 2/2 to amlodipine therapy, possible venous insufficie ncy.- Discussed exercise, leg raising, compressio n stockings Weakness of left leg 634 [id number] G83.12 2/2 CVA, residual baseline deficit. Recommende d formal PT. Patient declined and opted for home exercises. Weakness of left arm 274 [id number] G83.22 2/2 CVA, residual baseline deficit. Recommende d formal PT. Patient declined and opted for home exercises. Colon canc er screening declined [id number] 9109 Z53.20 Screening for malignant neoplasm of cervix declined [id number] Z53.20 Breast can cer screening declined [id number] Z53.20 [id number] MD Meghan BURNHAM [address] [address] 10/31/2021 14:23:55 11/01/2021 10:07:44 Hypertensive disorder [id number] I10 Chronic, controlled with antihypert ensive medication with lifestyle management . BP at goal of <150/90 by JNC-8 guidelines . Comorbidit ies include dyslipidem ia. History of lacunar stroke, so important control for secondary prevention . - Counseled on weight loss; recommende d goal of 10% - Recommende d low sodium balanced diet - Counseled on moderate exercise 4-5 times per week for an average of 40 minutes per session - Counseled on limiting alcohol to 1 drinks per day - Counseled on tobacco cessation not indicated - Continue on amlodipine , benazepril - Last BMP stable without significan t changes to Cr or electrolyt e balance. Repeat 6 months - Discussed not necessary to check BPs daily - Follow-up in 6 months [id number] MD Meghan Harris [address] [address] 04/14/2022 14:27:13 04/17/2022 13:06:28 Hypertensive disorder 14128693 I10 BP 140/95 in office today. Patient reports white coat HTN.Home blood pressures in the 120-130s/8 0sReports compliance with Amlodipine 10mg, Benazapril 20mg- Per JNC-8 guidelines , goal BP <140/90- Recommend patient check blood pressures at home and continue current medication s- Check BMP, Urine alb/cr, A1c- Follow up 1-2 months- ER return precaution s provided Hyperlipidemia [id number] E78.01 Jun 2021 lipid panel with TC 214, LDL 132Not currently on a statin- Repeat lipid panel today- Would recommend starting a statin for ASCVD risk prevention with hx of HTN and hyperlipid john [id number] Cecilia Ortega MD [facility] [address] [place] [address] 09/28/2022 14:07:48 09/29/2022 11:02:36 Hypertensive disorder 12188492 I10 BP Goal: Less than 140/90BP Controlled : yesHealthy Weight: 5'7= 121-158 lbsASCVD Risk: 5.8% 2021 BMP WNL, urine alb/cr WNL Discussed: Low sodium balanced diet, moderate exercise at least 3-4 times per week for an average of 40 minutes, limiting alcohol to 1 drink per day (F) or 2 drinks per day (M), and smoking cessation if currently smoking.Ne xt Visit: 6month(s)- Continue Amlodipine 10mg, Benazapril 20mg- Patient declines labs today d/t self pay Overweight [id number] E66 .3 BMI 27.7- Patient states her goal is to lose 10lbs over the next 3-4 months. She plans to cut back on carbs, similar to a keto diet Mammogram declined 53163 5004 Z53.20 Patient reports last mammogram >5 yrs agoDenies personal/f amily hx of breast cancer- Discussed risks/bene fits of breast cancer screening, patient voiced understand ing. Declines mammogram today Colon [facility] screening declined [id number] 9109 Z53.20 Patient denies personal/f amily hx of colon cancer. Has never had a colonoscop y.Discusse d risks/bene fits of colon cancer screening, patient voice understand ing. Declines colonoscop y today. Screening for malignant neoplasm of cervix declined [id number] Z53.20 Patient reports last pap >15yrs ago, reports normalPati ent denies personal/f amily hx of cervical cancer, HPV- Discussed risks/bene fits of cervical cancer screening, patient voiced understand ing. Declines testing today [id number] [facility] [address] [address] 12/28/2022 14:50:04 01/01/2023 11:18:40 Hypertensive disorder 02876300 I10 BP Goal: Less than 140/90BP Controlled : yes on repeat - home blood pressures in 115-130/65 -85Healthy Weight: 5'7= 121-158 lbsASCVD Risk: 5.8% 2021 BMP WNL, urine alb/cr WNL Discussed: Low sodium balanced diet, moderate exercise at least 3-4 times per week for an average of 40 minutes, limiting alcohol to 1 drink per day (F) or 2 drinks per day (M), and smoking cessation if currently smoking.Ne xt Visit: 6month(s)- Continue Amlodipine 10mg, Benazapril 20mg- Recheck BMP, urine alb/cr, lipid panel- Continue checking home blood pressures. Recommend bringing cuff to next visit [id number] [facility] [address] [address] 01/23/2023 15:20:23 02/01/2023 10:38:58 Hypertensive disorder 70213647 I10 BP Goal: Less than 140/90BP Controlled : noHealthy Weight: 5'8= 125-163 lbsDiscuss ed: Low sodium balanced diet, moderate exercise at least 3-4 times per week for an average of 40 minutes, limiting alcohol to 1 drink per day and smoking cessation if currently smoking.Ne xt Visit: 1month(s)- was previously stable on benazepril 20 bid and amlodipine 10- add HCTZ 12.5 and f/u 1 month [id number] CALL[facility]KE [facility] [address] [address] 04/26/2023 13:59:19 04/27/2023 09:27:56 Essential hypertension 57532276 I10 BP Goal: Less than 140/90BP Controlled : yesHealthy Weight: 5'5= 115-149 lbsDiscuss ed: Low sodium balanced diet, moderate exercise at least 3-4 times per week for an average of 40 minutes, limiting alcohol to 1 drink per day (F) or 2 drinks per day (M), and smoking cessation if currently smoking.Ne xt Visit: 3month(s)- December BMP and urine alb/cr WNL. Repeat due December 2023- Continue amlodipine 10mg and benazapril 20mg BID- Can discontinu e HCTZ as patient is no longer taking it and BP remains within goal [id number] ROXANNA ACOSTA MD [facility] [address] [address] [place] [address] 09/04/2023 15:28:09 09/05/2023 12:56:43 Essential hypertension 80191557 I10 BP Goal: Less than 140/90BP Controlled : yesHealthy Weight: 5'5= 115-149 lbsDiscuss ed: Low sodium balanced diet, moderate exercise at least 3-4 times per week for an average of 40 minutes, limiting alcohol to 1 drink per day (F) or 2 drinks per day (M), and smoking cessation if currently smoking.Ne xt Visit: 6month(s)- December BMP and urine alb/cr WNL. Repeat due December 2023- Continue amlodipine 10mg and benazapril 20mg BID Mammogram declined 73884 5004 Z53.20 Patient reports last mammogram >5 yrs agoDenies personal/f amily hx of breast cancer- Discussed risks/bene fits of breast cancer screening, patient voiced understand ing. Declines mammogram today Screening for malignant neoplasm of colon [id number] Z12.11 Patient denies personal/f amily hx of colon cancer. Has never had a colonoscop y.Discusse d risks/bene fits/alter natives. Patient voice understand ing. Declines colonoscop y, fit/cologu jeffrey today. Cervical c ancer Papanicolaou smear screening declined [id number] 72350 Z53.20 Patient reports last pap >15yrs ago, reports normalPati ent denies personal/f amily hx of cervical cancer, HPV- Discussed risks/bene fits of cervical cancer screening, patient voiced understand ing. Declines testing today [id number] CALLIE BLAKE MD [facility] [address] [facility] [address] [place] [address] 01/10/2024 14:25:17 01/11/2024 19:05:45 Essential hypertension 00396472 I10 BP Goal: Less than 140/90BP Controlled : yesHealthy Weight: 5'5= 115-149 lbsDiscuss ed: Low sodium balanced diet, moderate exercise at least 3-4 times per week for an average of 40 minutes, limiting alcohol to 1 drink per day (F) or 2 drinks per day (M), and smoking cessation if currently smoking.Ne xt Visit: 6month(s)- December BMP and urine alb/cr WNL. Repeat due at next visit- Continue amlodipine 10mg and benazapril 20mg BID Mammogram declined 98233 5004 Z53.20 Patient reports last mammogram >5 yrs agoDenies personal/f amily hx of breast cancer- Discussed risks/bene fits of breast cancer screening, patient voiced understand ing. Declines mammogram today Screening for malignant neoplasm of colon 877530081 Z12.11 Patient denies personal/f amily hx of colon cancer. Has never had a colonoscop y.Discusse d risks/bene fits/alter natives. Patient voice understand ing. Declines colonoscop y, fit/cologu jeffrey today. Cervical c ancer Papanicolaou smear screening declined [id number] 93398 Z53.20 Patient reports last pap >15yrs ago, reports normalPati ent denies personal/f amily hx of cervical cancer, HPV- Discussed risks/bene fits of cervical cancer screening, patient voiced understand ing. Declines testing today [id number] [facility] [address] [facility] [address] [place] [address] 07/10/2024 14:59:18 07/17/2024 11:15:49 Depression screening 291732692 Z13.31 PHQ 9 score 0negative for depression Essential hypertension 70082065 I10 BP Goal: Less than 140/90BP Controlled : yesHealthy Weight: 5'5= 115-149 lbsDiscuss ed: Low sodium balanced diet, moderate exercise at least 3-4 times per week for an average of 40 minutes, limiting alcohol to 1 drink per day (F) or 2 drinks per day (M), and smoking cessation if currently smoking.Ne xt Visit: 6month(s)- Will obtain BMP, UACR labs today- Continue amlodipine 10mg and benazapril 20mg BID Mammogram declined 98950 5004 Z53.20 Patient reports she is self pay - uninsured. Shared resources with [facility] for coverage of mammogram. Pt reports she only has a year to wait and would rather do that Patient reports last mammogram >5 yrs agoDenies personal/f amily hx of breast cancer- Discussed risks/bene fits of breast cancer screening, patient voiced understand ing. Declines mammogram today Screening for malignant neoplasm of colon [id number] Z12.11 Patient reports she is self pay - uninsuredP atient denies personal/f amily hx of colon cancer. Has never had a colonoscop y.Discusse d risks/bene fits/alter natives. Patient voice understand ing. Declines colonoscop y, fit/cologu jeffrey today. Cervical c ancer Papanicolaou smear screening declined [id number] 16980 Z53.20 Patient reports she is self pay - uninsured Patient reports last pap >15yrs ago, reports normalPati ent denies personal/f amily hx of cervical cancer, HPV- Discussed risks/bene fits of cervical cancer screening, patient voiced understand ing. Declines testing today Pneumococc al vaccination declined [id number] Z28.21 Health Concerns Section Related Observation LastModified by Organization Detai ls LastModified Time None Recorded Concern Status LastModified by Organization Details LastModified Time None Recorded Advance Directives Directive None Recorded Payers Insurance Date Sequence Insurance Name Policy Number Policy Carlin Covered Member ID Carlin Member ID Guarantor Name 07/10/2024 SLIDING FEE SCHEDULE - DISCOUNT Heidy Perharvinderk 01/10/2024 1 [place]ID Heidy Antoine [id number] Heidy Perdorothy 11/20/2019 1 *SELF PAY* Harvinder Antoine 05/30/2021 SLIDING FEE SCHEDULE - DISCOUNT Heidy Antoine 11/20/2019 1 *SELF PAY* Harvinder Antoine 01/23/2023 SLIDING FEE SCHEDULE - DISCOUNT Heidy Antoine 11/20/2019 SLIDING FEE SCHEDULE - DISCOUNT Heidy Perdorothy 01/10/2024 1 [facility]MEDICAID HMO) Heidy Antoine [id number] Heidy Antoine 04/14/2022 SLIDING FEE SCHEDULE - DISCOUNT Heidy Antoine 07/10/2024 SLIDING FEE SCHEDULE - DISCOUNT Heidy Antoine 01/23/2023 SLIDING FEE SCHEDULE - DISCOUNT Heidy Antoine 02/14/2018 SLIDING FEE SCHEDULE - DISCOUNT Heidy Antoine 02/14/2018 1 *SELF PAY* Harvinder Antoine Notes Date Note Type Note Provider Name [...] pain or swelling. Ivan Albrecht MD Attn: Accounting, [address] [place], [address], [facility] 01/30/2023 16:46:11 3 text/html Heidy Antoine is [...] chest pain, sob. Ivan Albrecht MD Attn: Accounting, [address] [place], [address], [facility] 04/26/2023 18:05:15 4 text/html 63yr old female presenting for med refills. No acute concernsReports compliance with BP medsChecks BP at home and brought log to visit. Readings are alll within goal.Declines all preventative screening today. Ivan Albrecht MD Attn: Accounting, [address] [place], [address], [facility] 09/04/2023 20:34:43 4 text/html 63yr old female presenting for med refills. No acute concernsReports compliance with BP medsChecks BP at home and brought log to visit. Readings are all within goal.Declines all preventative screening today. Berto Bhatt MD Attn: Accounting,[address] [facility], [place], [address], [facility] 01/11/2024 14:47:36 5 text/html Pt presents for blood pressure follow up.Has been monitoring blood pressure at home.Systolic range 135-116; diastolic range 74-86Pt denies CP/SOB, F/C, GARZA/dizziness, n/v/d/c, abdominal pain, dysuria, leg pain or swelling. Lena Leach MD Attn: Accounting,[address] [facility], [place], [address], [facility] 07/15/2024 14:33:29 OBGyn Episode No OBEpisode recorded.
--- OUTSIDE RECORDS SUMMARY | 2024-11-11 23:01 | XMS_ITS | Clinical Summary ---
Author Organization [facility] Address [address] [place] [address] Care Team Providers Care Shoe Folder Name Role Phone Unavailable Primary Care Provider Unavailabl e Source Comments [facility] [employer],non-owned Affiliates and Associated Physician Practices is amultiple site organization consisting of ambulatory clinics and hospital sitesin [place], [place], [place] and [place]. This disclosure is being madepursuant to the Care Everywhere program and may not contain all information available regarding this patient. 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 Gender Identity Not on file Sexual Orientation Not on file Last Filed Vital Signs Vital Sign Reading Time Taken Comments Blood Pressure 170/100 04/27/2017 6:00 PM HOT MILL OPERATOR Pulse 106 04/27/2017 5:00 PM HOT MILL OPERATOR Temperature 36.4 C (97.6 F) 04/26/2017 2:35 AM HOT MILL OPERATOR Respiratory Rate 20 04/27/2017 6:30 PM HOT MILL OPERATOR Oxygen Saturation 99% 04/27/2017 5:00 PM HOT MILL OPERATOR Inhaled Oxygen Concentration - - Weight 83 kg (183 lb) 04/26/2017 9:06 AM HOT MILL OPERATOR Height 165.1 cm (5' 5) 04/26/2017 9:06 AM HOT MILL OPERATOR Body Mass Index 30.45 04/26/2017 9:06 AM HOT MILL OPERATOR Plan of Treatment Health Maintenance [...] 08/18/1978 DTAP/TDAP/TD VACCINES (1 - Tdap) 08/23/1979 PAP SMEAR 1981 PNEUMOCOCCAL VACCINE 50+ (1 of 1 - [...] on patient's age to complete this topic Insurance SELF PAY NO INSURANCE Member Subscriber Plan / Payer (Ef fective for All Dates) Name:Loraine Arias Member ID:Not on file Relation to Subscriber:Not on file Name:LORAINE ARIAS Subscriber ID:Not on file (Home) Address: [address] [place] [id number] Payer ID:Not on file Group ID:Not on file Type:Self Pay Address: [place], [place]
[2024-11-11 23:07] VITALS: BP 153/102; PULSE 80; RESP 16; TEMP 36.8; O2SAT 99
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
--- OUTSIDE RECORDS SUMMARY | 2024-11-11 23:21 | XMS_ITS | Clinical Summary ---
Author Organization [facility] Address [address] [place] [address] Care Team Providers Care Supervisor Speech Name Role Phone Unavailable Primary Care Provider Unavailabl e Source Comments [facility] [employer],non-owned Affiliates and Associated Physician Practices is amultiple site organization consisting of ambulatory clinics and hospital sitesin [place], [place], [place] and [place]. This disclosure is being madepursuant to the Care Everywhere program and may not contain all information available regarding this patient. 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 Gender Identity Not on file Sexual Orientation Not on file Last Filed Vital Signs Vital Sign Reading Time Taken Comments Blood Pressure 170/100 04/27/2017 6:00 PM CORPORATE STAFF ACCOUNTANT Pulse 106 04/27/2017 5:00 PM CORPORATE STAFF ACCOUNTANT Temperature 36.4 C (97.6 F) 04/26/2017 2:35 AM CORPORATE STAFF ACCOUNTANT Respiratory Rate 20 04/27/2017 6:30 PM CORPORATE STAFF ACCOUNTANT Oxygen Saturation 99% 04/27/2017 5:00 PM CORPORATE STAFF ACCOUNTANT Inhaled Oxygen Concentration - - Weight 83 kg (183 lb) 04/26/2017 9:06 AM CORPORATE STAFF ACCOUNTANT Height 165.1 cm (5' 5) 04/26/2017 9:06 AM CORPORATE STAFF ACCOUNTANT Body Mass Index 30.45 04/26/2017 9:06 AM CORPORATE STAFF ACCOUNTANT Plan of Treatment Health Maintenance Due Date [...] ARIAS Subscriber ID:Not on file (Home) Address: [address] [place] [id number] Payer ID:Not on file Group ID:Not on file Type:Self Pay Address: [place], [place]
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
--- NOTE | 2024-11-11 23:42 | ED.GENADULT ---
[facility] - General Adult General Chief complaint: Unspecified Stated complaint: tiredness, possibly took extra dose of meds Time Seen by Provider: 11/11/24 23:09 History of Present Illness HPI narrative: 64-year-old female presenting to the emergency department after accidentally taking 1 additional dose of benazepril this evening. She states the ingestion was around 9:00 p.m. she takes 20 mg benazepril tablets. She took one additional dose this evening and wanted to come to the hospital for evaluation. Patient denies any significant symptoms such as syncope, presyncope, chest pain, shortness of breath. Patient endorses feeling tired but attributes it to the late evening and states that she feels fine at this time. Related Data Home Medications ?Medication ?Instructions ?Recorded ?Confirmed ?Last Taken ?Type amlodipine 10 mg tablet mg 09/26/24 09/29/24 History benazepril 20 mg tablet mg 09/26/24 09/30/24 History furosemide 20 mg tablet mg 09/26/24 Unknown History Allergies Allergy/AdvReac Type Severity Reaction Status Date / Time nitroglycerin Allergy Unknown ALMOST Verified 11/11/24 23:01 PASSED OUT Review of Systems Review of Systems: As reviewed above in HPI [facility] Past Medical History Medical History Blood in stool Social History Social History Smoking status: Never smoker Alcohol intake: never Substance use: never Substance use type: does not use Living arrangements: with family Spiritual care concerns: No Exam Narrative: GENERAL: [Well-appearing, well-nourished, and in no acute distress.] HEAD: [Normocephalic, atraumatic.] EYES: [PERRLA and EOMI.] ENT: Nares clear, no rhinorrhea or epistaxis. Mucous membranes moist. NECK: Supple. CHEST: [Clear to auscultation. No respiratory distress.] HEART: [Regular rate and rhythm]. No murmur heard. [Normal peripheral pulses.] ABDOMEN: [Soft, nondistended], [nontender], [No rigidity or guarding] EXTREMITIES: Normal range of motion. [No edema.] SKIN: Warm, dry, no rash. NEURO: [No focal deficits]. Alert and oriented [x3.] PSYCH: [Normal mood and affect.] Course Vital Signs Vital signs: Vital Signs Temperature 36.8 C 11/11/24 23:07 Pulse Rate 80 11/11/24 23:07 Respiratory Rate 16 11/11/24 23:07 Blood Pressure 153/102 H 11/11/24 23:07 Pulse Oximetry 99 11/11/24 23:07 Oxygen Delivery Room Air 11/11/24 23:07 Temperature 36.8 C 11/11/24 23:07 Pulse Rate 79 11/11/24 23:44 Respiratory Rate 18 11/11/24 23:44 Blood Pressure 143/88 H 11/11/24 23:44 Pulse Oximetry 99 11/11/24 23:44 Oxygen Delivery Room Air 11/11/24 23:07 Medical Decision Making MDM Narrative Medical decision making narrative: 64-year-old female with history of hypertension who took an extra dose of 20 mg benazepril this evening. She normally takes 20 mg b.i.d. but states she took an additional 1 tab this evening. Occurred about 3 hours prior to initial evaluation. Patient has no significant symptoms and otherwise appears well and awake alert oriented. No reported syncope or presyncope. Blood pressure normal here with no other concerns such as tachycardia, fever, hypoxia. Blood pressure checked several times and stable. Patient can be safely discharged at this time given the acute nontoxic ingestion, peak onset of action of the medication within 2 hours, and no symptoms at this time. Patient given return precautions and discharge instructions. Medical Records Medical records reviewed: Yes I reviewed the external patient's medical records. Vital Signs Vital Signs: Vital Signs Temperature 36.8 C 11/11/24 23:07 Pulse Rate 80 11/11/24 23:07 Respiratory Rate 16 11/11/24 23:07 Blood Pressure 153/102 H 11/11/24 23:07 Pulse Oximetry 99 11/11/24 23:07 Oxygen Delivery Room Air 11/11/24 23:07 Temperature 36.8 C 11/11/24 23:07 Pulse Rate 79 11/11/24 23:44 Respiratory Rate 18 11/11/24 23:44 Blood Pressure 143/88 H 11/11/24 23:44 Pulse Oximetry 99 11/11/24 23:44 Oxygen Delivery Room Air 11/11/24 23:07 Lab Data Lab results reviewed: Yes I reviewed the patient's lab results. Discharge Plan Discharge Clinical Impression: Accidental drug ingestion Patient Disposition: Home Condition: Stable Instructions: Antibiotic Form Additional Instructions: Your blood pressure is stable here without any acute concerns that the medications you took will have any significant impact. Follow-up with regular doctor. Return with any emergent concerns/development of any concerning symptoms Patient Language: [place] Prescriptions: No Action amlodipine 10 mg tablet benazepril 20 mg tablet furosemide 20 mg tablet Follow-up/Referrals: PHYSICIAN,MACHINE CLOTHING REPLACER [Primary Care Provider] - Time of Disposition: 23:39
[2024-11-11 23:44] VITALS: BP 143/88; PULSE 79; RESP 18; O2SAT 99
== END 2024-11-11 23:45 | disposition home or self-care (01) ==
PROVIDERS: Emergency Provider Student in an Organized Health Care Education/Training Program
DX: T46.4X1A Poisoning by angiotensin-converting-enzyme inhibitors, accidental (unintentional), initial encounter (principal)
CPT/HCPCS: 99281